=== PATIENT | male | born 1975 | race Caucasian/White ===

== ENCOUNTER 2016-08-02 10:26 | Emergency (ER) | payer OTHER ==
[~2016-08-02] VITALS: Ht 180.3 cm; Wt 136.1 kg
[2016-08-02 11:14] LABS: ABSOLUTE BASOPHIL COUNT 0 /CUMM (0.0-0.2); ABSOLUTE EOSINOPHIL COUNT 0.2 /CUMM (0.0-0.7); ABSOLUTE GRANULOCYTE CT 4.4 /CUMM (1.4-6.5); ABSOLUTE LYMPH COUNT 1.8 /CUMM (1.2-3.4); ABSOLUTE MONOCYTE COUNT 0.5 /CUMM (0.10-0.60); BASOPHIL % 0.5 % (0.0-2.0); EOSINOPHIL % 2.7 % (0-5); GRANULOCYTE % 64.1 % (42.2-75.2); HEMATOCRIT 42.9 % (42-52); MEAN CORPUSCULAR HGB 32.5 PG (27.0-31.0); MEAN CORPUSCULAR HGB CONC 33.7 G/DL (33.0-37.0); MEAN CORPUSCULAR VOLUME 96.7 FL (80.0-94.0); MEAN PLATELET VOLUME 8.1 FL (7.4-10.4); PLATELET COUNT 270 /CUMM (130-400); RBC DISTRIBUTION WIDTH 14.1 % (11.5-14.5); RED BLOOD CELL CT 4.44 /CUMM (4.70-6.10); WHITE BLOOD CELL COUNT 6.9 /CUMM (4.8-10.8)
--- NOTE | 2016-08-02 11:40 | ED DYSPNEA/ASTHMA COMPLAINT ---
See Addendum History of Present Illness General Chief Complaint: Dyspnea (COPD, CHF, Other) Stated Complaint: SOB X 1 MONTH Source: patient, old records Exam Limitations: no limitations Vital Signs & Intake/Output Vital Signs & Intake/Output Vital Signs Date Time Temp Pulse Resp B/P Pulse O2 O2 Flow FiO2 Ox Delivery Rate 08/02 1254 97.4 115 20 166/98 04 1254 97 08/02 1254 97.4 115 20 166/98 97 Room Air 08/02 1141 98.0 90 18 138/103 95 Room Air 08/02 1030 97.1 98 22 160/88 97 Room Air ED Intake and Output 08/03 0000 08/02 1200 Intake Total 60 Output Total Balance 60 Intake, Oral 60 Patient 300 lb Weight Allergies Coded Allergies: Penicillins (UNKNOWN 08/02/16) Reconcile Medications Albuterol Sulfate (Proair Hfa) 90 MCG HFA.AER.AD 2 PUF INH Q4-6 PRN PRN WHEEZING Apixaban (Eliquis) 5 MG TABLET 1 TAB PO BID afib Diltiazem HCl (Cardizem) 30 MG TABLET 1 TAB PO TID AFIB Glucosamine Sulfate 2KCL (Glucosamine) (Unknown Strength) TABLET (Unknown Dose ) PO DAILY SUPPLEMENT (Reported) Methylprednisolone. (Medrol) 4 MG TAB.DS.PK 1 DP PO AD WHEEZING 6 on day 1 then reduce by one tablet daily until gone Multivitamin (Gummi Bear Multivitamin) 1 EACH TAB.CHEW 1 TAB PO DAILY SUPPLEMENT (Reported) Triage Note: PT STATES SOB CONGESTION, WHEEZING ON AND OFF X 3 MONTHS Triage Nurses Notes Reviewed? yes Onset: Gradual Duration: intermittent, X 3 MONTHS Timing: recent history Severity: mild, moderate Activities at Onset: none Prior Episodes/Possible Cause: no prior episodes Associated Symptoms: DENIES HPI: This is a 40-year-old male with no significant past medical history nonsmoker presents to the ER for evaluation complaining of a 3 month history of intermittent shortness of breath wheezing congestion. He states that the symptoms initially began while he was visiting his mother who is in the hospital for pneumonia. He did not seek care himself for the symptoms. He denies cough sputum production fever chills chest pain palpitations dizziness lightheadedness. Patient does not have a primary care physician is not taken anything for his symptoms. He denies any leg swelling recent immobility. There are no modifying factors or associated symptoms symptoms are not worse with exertion (CHELLE GREENE) Past History Travel History Traveled to [place] past 21 day No Medical History Any Pertinent Medical History? none Surgical History Surgical History: none Psychosocial History What is your primary language Guinean Tobacco Use: Never used ETOH Use: occasional use Illicit Drug Use: denies illicit drug use Family History Hx Contributory? No (CHELLE GREENE) Review of Systems Review of Systems Constitutional: Reports: see HPI. All Other Systems: Reviewed and Negative Comments Review of systems: See HPI, All other systems negative. Constitutional, no chills no fever, no malaise HEENT: No visual changes no sore throat no congestion Cardiovascular: No chest pain , no palpitation , no orthopnea no ankle swelling Skin, no jaundice no rashes, no change in skin Respiratory: dyspnea no cough no sputum no hemoptysis GI: No nausea no vomiting, no diarrhea, no bloating/constipation : No dysuria Muscle skeletal: No joint pain, no joint swelling, no back pain, no neck pain, Neurologic: No numbness no headache Psych: No stress Heme/endocrine: No bruising no bleeding Immunology: No lymphadenopathy, (CHELLE GREENE) Physical Exam Physical Exam General Appearance: well developed/nourished, alert, awake Respiratory: normal breath sounds, chest non-tender Comments: Well-developed well-nourished person in no acute distress HEENT: Normal EENT exam; PERRL, EOMI, HEAD is atraumatic. moist mucous membranes. Neck: Supple, normal range of motion Back: Nontender, no CVA tenderness. Full range of motion Cardiovascular: Regular rate and rhythm no murmurs rubs or gallops, normal JVP Respiratory: Chest nontender.There were no bony deformities, no asymmetry. No respiratory distress. Patient speaking in full complete sentences. Breath sounds clear to auscultation bilaterally: NO W/R/R Abdomen: Soft, nontender obese nondistended, no appreciable organomegaly. Normal bowel sounds. No rebound/guarding, No appreciable enlargement of the abdominal aorta, No ascites. Extremity: No edema, full range of motion of extremities Neuro: Alert oriented x3, motor sensory normal, There were no obvious focal neurologic abnormalities. Skin: No appreciable rash on exposed skin, skin is warm and dry. Psych: Mood and affect is normal, memory and judgment is normal. Core Measures ACS in differential dx? Yes Severe Sepsis Present: No Septic Shock Present: No (GALO UMANZOR,CHELLE) Progress Differential Diagnosis: AMI, bronchitis, costochondritis, CHF, COPD, musculoskeletal pain, pericarditis, pulmonary embolism, pneumonia, pneumothorax, unstable angina, a. FIB Plan of Care: Orders Procedure Date/time Status Add-on Test (ER Only) 08/02 1236 Active EKG 08/02 1049 Active THYROID STIMULATING HORMONE 08/02 1047 Complete MAGNESIUM 08/02 1047 Complete TROPONIN LEVEL 08/02 1034 Complete COMPREHENSIVE METABOLIC PANEL 08/02 1034 Complete CBC WITHOUT DIFFERENTIAL 08/02 1034 Complete Laboratory Tests 08/02/16 1047: Anion Gap 12, Estimated GFR > 60, BUN/Creatinine Ratio 15.7, Glucose 139 H, Calcium 9.7, Magnesium 1.5 L, Total Bilirubin 0.9, AST 138 H, ALT 158 H, Alkaline Phosphatase 79, Troponin I 0.02, Total Protein 7.4, Albumin 4.0, Globulin 3.4, Albumin/Globulin Ratio 1.2, TSH 2.430, CBC w Diff NO MAN DIFF REQ, RBC 4.44 L, MCV 96.7 H, MCH 32.5 H, RDW 14.1, MPV 8.1, Gran % 64.1, Lymphocytes % 25.6, Monocytes % 7.1, Eosinophils % 2.7, Basophils % 0.5, Absolute Granulocytes 4.4, Absolute Lymphocytes 1.8, Absolute Monocytes 0.5, Absolute Eosinophils 0.2, Absolute Basophils 0, PUBS MCHC 33.7 Labs ordered old records reviewed I discussed the patient is EKG new onset A. fib, after discussing the patient with his EKG he is stating that there is "no way" that he is being admitted stating that he has animals and people he needs to care for. Discussed with him the harms of this we will continue to monitor waiting for blood work call was placed to cardiology On repeat evaluation discussed with patient all his lab results x-ray findings patient does not have an elevated white count is a symptoms of been present for the past 3 months I do not believe he requires an antibiotic however again stressed with the patient at least need for admission for anticoagulation and rate control her etiology consult given he does not have a primary care physician again the patient is refusing, CASE d/w dr morgan who agrees with plan Case discussed with Dr. Shen advised to start the patient on diltiazem 30 mg 3 times a day petra montesinos have him call his office today given the patient is refusing admission we also sent home with pro-air inhaler prednisone, I again attempted to reason with the patient for admission which she is refusing he is ambulatory here with steady gait he denies chest pain there is no pain with inspiration no leg swelling no hemoptysis I considered pulmonary embolism in my differential however the patient is a not exhibiting any of these symptoms at this time CHADS SCORE 0 points Low risk of thromboembolic event. 1.9% risk of event per year if no coumadin. (CHELLE GREENE) Diagnostic Imaging: Viewed by Me: Radiology Read. Discussed w/RAD: Radiology Read. Radiology Impression: PATIENT: HARSHAD MUNOZ PRESENT AGE: 40 PATIENT ACCOUNT NO: [id number] : 74 LOCATION: [facility] ORDERING PHYSICIAN: CHELLE UMANZOR SERVICE DATE: 08/02/16 EXAM TYPE: RAD - XRY-CHEST XRAY, PA AND LATERAL EXAMINATION: XR CHEST CLINICAL INFORMATION: Shortness of breath. COMPARISON: None TECHNIQUE: 2 views of the chest were obtained. FINDINGS: There is diffuse interstitial prominence which is nonspecific and could represent mild interstitial edema or airways inflammation/ atypical pneumonia. There is no focal consolidation. No pleural effusion. The heart size is normal. IMPRESSION: Diffuse interstitial prominence may represent airways inflammation/atypical pneumonia or possibly interstitial edema. No focal consolidation. DICTATED BY: KELLY RODRÍGUEZ MD DATE/TIME DICTATED:08/02/161104 TILE LAYER:JENIFFER DATE/TIME TRANSCRIBED:08/02/161104 CONFIDENTIAL, DO NOT COPY WITHOUT APPROPRIATE AUTHORIZATION. <Electronically signed in Other Vendor System> SIGNED BY: KELLY RODRÍGUEZ MD 08/02/16 1153 Initial ED EKG: a. FIB AT 110, NONSPECIFIC st SEGMENT CHANGES NORMAL AXIS Rhythm Strip: atrial fibrillation (CHELLE GREENE) Departure Departure Time of Disposition: 124 Disposition: HOME OR SELF CARE Condition: Stable Clinical Impression Primary Impression: New onset a-fib Referrals: OSMIN FALL,SURESH Miller (PCP/Family) MIGNON FALL,RYAN Cramer Additional Instructions: Follow-up with travel journalist Dr. Shen's office today. Prednisone as directed, Diltiazem, and elliquis and discussed. proair inhaler as needed. As discussed it was highly recommended to you the need for admission and the risks of leaving prematurely at this time given your diagnosis of new onset atrial fibrillation. Your risk of developing blood clots, further arrhythmias worsening of your symptoms or even possibly and this has been explained to you. It is imperative that you follow up with his travel journalist this week as well as take all the medications as prescribed. your prescriptions were sent to your pharmacy. Return anytime sooner if your symptoms persist, worsen or have any other concerns Departure Forms: Customer Survey General Discharge Information Prescriptions: Current Visit Scripts Apixaban (Eliquis) 1 TAB PO BID #60 TAB Diltiazem HCl (Cardizem) 1 TAB PO TID #90 TAB Albuterol Sulfate (Proair Hfa) 2 PUF INH Q4-6 PRN PRN WHEEZING #1 INHAL Methylprednisolone. (Medrol) 1 DP PO AD #1 DP 6 on day 1 then reduce by one tablet daily until gone (CHELLE GREENE) PA/ROUGE SIFTER Co-Sign Statement Statement: ED Attending supervision documentation- x I saw and evaluated the patient. I have also reviewed all the pertinent lab results and diagnostic results. I agree with the findings and the plan of care as documented in the PA's/ROUGE SIFTER's documentation. [] I have reviewed the ED Record and agree with the PA's/ROUGE SIFTER's documentation. [] Additions or exceptions (if any) to the PAs/ROUGE SIFTER's note and plan are summarized below: [] (FUENTES FALL,JAVIER) Critical Care Note Critical Care Note Critical Care Time: non-applicable (CHELLE GREENE)
[2016-08-02] MEDS ORDERED: GUMMI BEAR MUL1 EACH PO (11:45)
[2016-08-02] MEDS ORDERED: GLUCOSAMINE &1 EAC1 PO (11:46)
[2016-08-02] MEDS ORDERED: GLUCOSAMINE1000 MG PO (11:46)
--- NOTE | 2016-08-02 11:53 | RADIOLOGY REPORT ---
EXAMINATION: XR CHEST CLINICAL INFORMATION: Shortness of breath. COMPARISON: None TECHNIQUE: 2 views of the chest were obtained. FINDINGS: There is diffuse interstitial prominence which is nonspecific and could represent mild interstitial edema or airways inflammation/atypical pneumonia. There is no focal consolidation. No pleural effusion. The heart size is normal. IMPRESSION: Diffuse interstitial prominence may represent airways inflammation/atypical pneumonia or possibly interstitial edema. No focal consolidation.
[2016-08-02] MEDS ORDERED: CARDIZEM30 M1 PO (12:45)
[2016-08-02] MEDS ORDERED: PROAIR HFA8.5 GM INH (12:45)
[2016-08-02] MEDS ORDERED: ELIQUIS5 M1 PO (12:45)
[2016-08-02] MEDS ORDERED: MEDROL4 M2 PO (12:45)
[2016-08-02 12:54] VITALS: BP 166/98
== END 2016-08-02 12:57 | disposition left against medical advice (07) ==
LOC: ERH 10:26
PROVIDERS: Emergency Medicine
DX: I48.91 Unspecified atrial fibrillation (principal); R06.2 Wheezing
CPT/HCPCS: 1263; 93005; 93010

== ENCOUNTER 2016-08-03 14:28 | Inpatient (IN) | payer OTHER ==
[~2016-08-03] VITALS: Ht 180.3 cm; Wt 136.1 kg
[~2016-08-03 14:28] MED LIST: CARDIZEM30 M1 PO; ELIQUIS5 M1 PO; GLUCOSAMINE &1 EAC1 PO; GLUCOSAMINE1000 MG PO; GUMMI BEAR MUL1 EACH PO; MEDROL4 M2 PO; PROAIR HFA8.5 GM INH
--- NOTE | 2016-08-03 14:30 | NUR ---
TO EKG ALCTANNER
--- NOTE | 2016-08-03 14:39 | NUR ---
PT TO ED C/O SOB TODAY. PT WAS SEEN IN ED YESTERDAY, DIAGNOSED WITH NEW ONSET AFIB, PT SIGNED OUT AMA, STATES HE WAS UNABLE TO STAY DUE TO "THINGS TO DO". STATES HE FELT OK WHEN HE LEFT, BUT THIS AM STARTED FEELING SOB AGAIN. EKG DONE. BP 154/100, RA SATS 97%, DENIES ANY PAIN.
--- NOTE | 2016-08-03 15:13 | NUR ---
BLOODWORK,SST,LAV,BLUE,MURCIA AND PINK TOP TUBE SENT TO LAB.
[2016-08-03 15:21] LABS: ABSOLUTE BASOPHIL COUNT 0 /CUMM (0.0-0.2); ABSOLUTE EOSINOPHIL COUNT 0 /CUMM (0.0-0.7); ABSOLUTE GRANULOCYTE CT 11.9 /CUMM (1.4-6.5); ABSOLUTE LYMPH COUNT 1.1 /CUMM (1.2-3.4); ABSOLUTE MONOCYTE COUNT 0.7 /CUMM (0.10-0.60); BASOPHIL % 0.3 % (0.0-2.0); EOSINOPHIL % 0.1 % (0-5); GRANULOCYTE % 86.5 % (42.2-75.2); HEMATOCRIT 42.2 % (42-52); MEAN CORPUSCULAR HGB 32.4 PG (27.0-31.0); MEAN CORPUSCULAR HGB CONC 33.5 G/DL (33.0-37.0); MEAN CORPUSCULAR VOLUME 96.6 FL (80.0-94.0); MEAN PLATELET VOLUME 8.1 FL (7.4-10.4); PLATELET COUNT 294 /CUMM (130-400); RBC DISTRIBUTION WIDTH 13.8 % (11.5-14.5); RED BLOOD CELL CT 4.36 /CUMM (4.70-6.10)
[2016-08-03 15:22] LABS: WHITE BLOOD CELL COUNT 13.8 /CUMM (4.8-10.8)
--- NOTE | 2016-08-03 15:30 | NUR ---
PER LAB BLUE,SST,MURCIA TUBES HEMOLIZED
--- NOTE | 2016-08-03 15:30 | ED DYSPNEA/ASTHMA COMPLAINT ---
History of Present Illness General Chief Complaint: Dyspnea (COPD, CHF, Other) Stated Complaint: SOB Source: patient, old records Exam Limitations: no limitations Vital Signs & Intake/Output Vital Signs & Intake/Output Vital Signs Date Time Temp Pulse Resp B/P Pulse O2 O2 Flow FiO2 Ox Delivery Rate 08/03 1511 97 Nasal 2.0L Cannula 08/03 1439 99.4 134 20 154/100 97 Room Air Allergies Coded Allergies: Penicillins (UNKNOWN 08/02/16) Reconcile Medications Albuterol Sulfate (Proair Hfa) 90 MCG HFA.AER.AD 2 PUF INH Q4-6 PRN PRN WHEEZING Apixaban (Eliquis) 5 MG TABLET 1 TAB PO BID afib Diltiazem HCl (Cardizem) 30 MG TABLET 1 TAB PO TID AFIB Glucosamine Sulfate 2KCL (Glucosamine) (Unknown Strength) TABLET (Unknown Dose ) PO DAILY SUPPLEMENT (Reported) Methylprednisolone. (Medrol) 4 MG TAB.DS.PK 1 DP PO AD WHEEZING 6 on day 1 then reduce by one tablet daily until gone Multivitamin (Gummi Bear Multivitamin) 1 EACH TAB.CHEW 1 TAB PO DAILY SUPPLEMENT (Reported) Triage Note: PT TO ED C/O SOB TODAY. PT WAS SEEN IN ED YESTERDAY, DIAGNOSED WITH NEW ONSET AFIB, PT SIGNED OUT AMA, STATES HE WAS UNABLE TO STAY DUE TO "THINGS TO DO". STATES HE FELT OK WHEN HE LEFT, BUT THIS AM STARTED FEELING SOB AGAIN. EKG DONE. BP 154/100, RA SATS 97%, DENIES ANY PAIN. Triage Nurses Notes Reviewed? yes Onset: months Duration: week(s):, continues in ED, getting worse, intermittent Timing: recent history Severity: moderate Activities at Onset: activity Prior Episodes/Possible Cause: frequent episodes Modifying Factors: Improves With: rest. Worsens With: movement. Associated Symptoms: edema, lightheadedness, weakness HPI: 3 months prior to admission patient complains of episodes of fatigue shortness of breath chest heaviness worse with exertion. He also notes increasing swelling in his legs. He was seen yesterday diagnosed with rapid atrial fibrillation signed out AMA with prescriptions for diltiazem and eliquis. He denies fever chills nausea vomiting diarrhea abdominal pain dysuria rash bleeding headache. Past History Travel History Traveled to [place] past 21 day No Medical History Any Pertinent Medical History? see below for history Cardiovascular: AFIB Surgical History Surgical History: none Psychosocial History What is your primary language Pashto Tobacco Use: Never used ETOH Use: occasional use Illicit Drug Use: denies illicit drug use Family History Hx Contributory? No Review of Systems Review of Systems Constitutional: Reports: see HPI, weakness. EENTM: Reports: no symptoms. Respiratory: Reports: see HPI, short of breath. Cardiovascular: Reports: see HPI, peripheral edema. GI: Reports: no symptoms. Genitourinary: Reports: no symptoms. Musculoskeletal: Reports: no symptoms. Skin: Reports: no symptoms. Neurological/Psychological: Reports: no symptoms. Hematologic/Endocrine: Reports: no symptoms. Immunologic/Allergic: Reports: no symptoms. All Other Systems: Reviewed and Negative Physical Exam Physical Exam General Appearance: well developed/nourished, alert, awake, anxious, moderate distress, obese Head: atraumatic, normal appearance Eyes: Bilateral: normal appearance, PERRL, EOMI. Ears, Nose, Throat: normal pharynx, normal ENT inspection Neck: normal inspection, supple, full range of motion, no midline tenderness Respiratory: chest non-tender, no respiratory distress, quiet respiration, crackles Cardiovascular: normal peripheral pulses, irregularly irregular, norml femoral pulses equa Peripheral Pulses: 4+ carotid (R), 4+ carotid (L) Gastrointestinal: normal bowel sounds, soft, non-tender, no organomegaly Extremities: normal capillary refill, pedal edema Neurologic/Psych: no motor/sensory deficits, awake, alert, oriented x 3, normal gait, abnormal cerebellar tests, scarf gluer II-XII nml as tested Skin: intact, normal color, warm/dry Lymphatic: no anterior cervical griselda Core Measures ACS in differential dx? No Severe Sepsis Present: No Septic Shock Present: No Progress Differential Diagnosis: AMI, CHF, pneumonia Plan of Care: Orders Procedure Date/time Status Regular Diet 08/03 D Active Patient Data 08/03 1519 Active OXYGEN SETUP (GEN) 08/03 151 Active Saline Lock 08/03 1515 Active Admit to inpatient 08/03 1515 Active Add-on Test (ER Only) 08/03 1515 Active Vital Signs 08/03 1515 Active Activity/Ambulation 08/03 1515 Active Code Status 08/03 1515 Active PROTHROMBIN TIME 08/03 1510 Complete B-TYPE NATRIURETIC PEP (BNP) 08/03 1510 Complete TROPONIN LEVEL 08/03 1459 Complete MAGNESIUM 08/03 1459 Complete COMPREHENSIVE METABOLIC PANEL 08/03 1459 Complete CBC WITHOUT DIFFERENTIAL 08/03 145 Active EKG 08/03 1431 Active Laboratory Tests 08/03/16 1540: Anion Gap 11, Estimated GFR > 60, BUN/Creatinine Ratio 16.3, Glucose 119 H, Calcium 10.3 H, Magnesium 1.6, Total Bilirubin 0.6, AST 95 H, ALT 140 H, Alkaline Phosphatase 75, Troponin I 0.01, Hld-J-Kmknsxoucky Pept 1730 H, Total Protein 7.7, Albumin 4.1, Globulin 3.6, Albumin/Globulin Ratio 1.1 08/03/16 1510: PT 13.3 H, INR 1.27 H, CBC w Diff MAN DIFF ORDERED, RBC 4.36 L, MCV 96.6 H, MCH 32.4 H, RDW 13.8, MPV 8.1, Gran % 86.5 H, Lymphocytes % 7.8 L, Monocytes % 5.3, Eosinophils % 0.1, Basophils % 0.3, Absolute Granulocytes 11.9 H, Segmented Neutrophils Pending, Absolute Lymphocytes 1.1 L, Absolute Monocytes 0.7 H, Absolute Eosinophils 0, Absolute Basophils 0, PUBS MCHC 33.5 Diagnostic Imaging: Viewed by Me: Radiology Read. Discussed w/RAD: Radiology Read. CXR Impression: cm, vascular congestion Initial ED EKG: normal axis, AFIB, nonspecific ST T wave chg Prior EKG: unchanged Rhythm Strip: atrial fibrillation Departure Departure Time of Disposition: 1527 Disposition: STILL A PATIENT Condition: Stable Clinical Impression Primary Impression: Atrial fibrillation with rapid ventricular response Secondary Impressions: Congestive heart failure Qualifiers: Congestive heart failure type: unspecified congestive heart failure type Congestive heart failure chronicity: acute Qualified Code: I50.9 - Heart failure, unspecified Departure Forms: Customer Survey General Discharge Information Admission Note Spoke With: RYAN CROW MD Documentation of Exam: Documentation of any treatments & extenuating circumstances including Concerns Regarding Discharge (functional status, medication knowledge or non-compliance, living conditions, etc.) that warrant an admission rather than observation: Cardiac monitoring serial lab exam medication adjustment cardiology evaluation IV heparin continuing care discharge planning Critical Care Note Critical Care Note Critical Care Time: 30-74 min (40) Departure Forms: Customer Survey General Discharge Information Admission Note Spoke With: RYAN CROW MD Documentation of Exam: Documentation of any treatments & extenuating circumstances including Concerns Regarding Discharge (functional status, medication knowledge or non-compliance, living conditions, etc.) that warrant an admission rather than observation: Cardiac monitoring serial lab exam medication adjustment cardiology evaluation IV heparin continuing care discharge planning Critical Care Note Critical Care Note Critical Care Time: 30-74 min (40)
[2016-08-03 15:39] LABS: PT 13.3 SEC (9.4-12.5)
--- NOTE | 2016-08-03 15:50 | RADIOLOGY REPORT ---
EXAMINATION: XR PORTABLE CHEST CLINICAL INFORMATION: Rapid A. fib shortness of breath COMPARISON: None TECHNIQUE: Portable AP view of the chest was obtained. FINDINGS: The cardiac silhouette is mildly enlarged but unchanged. Lungs clear. Pulmonary vascularity normal. Bone and soft tissues unremarkable IMPRESSION: enlarged cardiac silhouette but unchanged
--- NOTE | 2016-08-03 16:05 | NUR ---
ADDITIONAL IV ACCESS ESTABLISHED, #22 RFA
--- NOTE | 2016-08-03 16:15 | NUR ---
PT MEDICATED WITH IV HEPARIN BOLUS 4000 UNITS AND HEPARIN GTT INITIATED AT 20 MLS/HR (1000 UNITS/HR) PER ORDERS. PT MAXED OUT ON HEPARIN GTT AND GTT WAS VERIFIED WITH KULDEEP BISHOP.
--- NOTE | 2016-08-03 16:25 | NUR ---
PT MEDICATED WITH CARDIZEM AND IV LASIX PER ORDERS. HR 100-120 PRIOR TO RECEIVING SAME. HOUSESTAFF (MD WOODY) AT BEDSIDE.
--- NOTE | 2016-08-03 16:30 | NUR ---
HOUSE STAFF AT BEDSIDE
--- NOTE | 2016-08-03 16:55 | NUR ---
PT MEDICATED WITH MAG-OX PER ORDERS.
--- NOTE | 2016-08-03 16:57 | History & Physical ---
JOSE LUIS SAENZ 08/03/16 8512: General Information and HPI MD Statement: I have seen and personally examined MARCELLO OG and documented this H&P. The patient is a 40 year old M who presented with a patient stated chief complaint of [persistent/progressive exertional shortness of breath]. Source of Information: patient Exam Limitations: no limitations History of Present Illness: Mr Og is a 40-year-old gentleman with a PMH of morbid obesity, right knee injury who presents with complaints of progressive shortness of breath with exertion. Over the past 3 months he has been taking care of his sick mother at her rehab facility and noticed that during the last 1 month he has been experiencing intermittent episodes of chest congestion and productive cough occasionally with green/yellow sputum that was not relieved with PRN Mucinex. For the past few days he reports worsening exertional shortness of breath, a decrease in the ability to exert himself at work and a productive cough over the past 2 days. He followed up in the ER the day prior to admission and was found to have new onset atrial fibrillation. He received an albuterol nebulizer treatment which provided significant relief but declined to be admitted due to his work obligations and left AMA. Prior to leaving he was provided with prescriptions for Eliquis, Cardizem, proair and a Medrol Dosepak. Unfortunately he did not start any of these medications due to concern for bleeding, went to work this morning where he again experienced significant dyspnea with mild exertion, feeling that he described as "winded easily". ROS: Patient does endorse one month duration of nocturnal cough with clear productive sputum, weight gain over the past few months. He denies any headaches, dizziness or blurred vision or chest pain, palpitations, nausea, abdominal pain, fevers or chills. 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 Allergies/Medications Allergies: Coded Allergies: Penicillins (UNKNOWN 08/02/16) Home Med list Albuterol Sulfate (Proair Hfa) 90 MCG HFA.AER.AD 2 PUF INH Q4-6 PRN PRN WHEEZING Apixaban (Eliquis) 5 MG TABLET 1 TAB PO BID afib Diltiazem HCl (Cardizem) 30 MG TABLET 1 TAB PO TID AFIB Glucosamine Sulfate 2KCL (Glucosamine) (Unknown Strength) TABLET (Unknown Dose ) PO DAILY SUPPLEMENT (Reported) Methylprednisolone. (Medrol) 4 MG TAB.DS.PK 1 DP PO AD WHEEZING 6 on day 1 then reduce by one tablet daily until gone Multivitamin (Gummi Bear Multivitamin) 1 EACH TAB.CHEW 1 TAB PO DAILY SUPPLEMENT (Reported) Past History Travel History Traveled to [place] past 21 day No Medical History Cardiovascular: AFIB Musculoskeletal: right knee injury Endocrine: obesity Surgical History Surgical History: none Past Family/Social History Psychosocial History Where do you live? Home Who Do You Live With? self Services at Home: None Smoking Status: Never Smoked ETOH Use: daily use Illicit Drug Use: denies illicit drug use Functional Ability ADLs Independent: dressing, eating, toileting, bathing. Ambulation: independent IADLs Independent: shopping, housework, finances, food prep, telephone, transportation , medication admin. Employment History Employment Employed Review of Systems Review of Systems Constitutional: Reports: see HPI. EENTM: Reports: no symptoms. Cardiovascular: Reports: see HPI. Respiratory: Reports: see HPI. GI: Reports: no symptoms. Genitourinary: Reports: no symptoms. Musculoskeletal: Reports: no symptoms. Skin: Reports: no symptoms. Exam & Diagnostic Data Last 24 Hrs of Vital Signs/I&O Vital Signs Date Time Temp Pulse Resp B/P Pulse O2 O2 Flow FiO2 Ox Delivery Rate 08/03 1818 98.8 103 20 138/80 96 Room Air 08/03 1632 98.6 106 18 143/71 95 Room Air 08/03 1511 97 Nasal 2.0L Cannula 08/03 1439 99.4 134 20 154/100 97 Room Air Intake & Output 08/03 1600 08/03 0800 08/03 0000 Intake Total Output Total Balance Patient 300 lb Weight Physical Exam General Appearance Alert, Cooperative, Slightly anxious appearing Skin No Breakdown HEENT EOMI, Mucous Membr. moist/pink Neck Unable to assess JVD due to body habitus Cardiovascular Normal S1, Normal S2, irregular regular rhythm Lungs Normal Air Movement, diminished breath sounds in the basilar regions. Distant breath sounds bilaterally Abdomen Normal Bowel Sounds, Soft, No Tenderness Extremities Normal Pulses, 2+ pitting edema bilateral lower extremities Vascular Pulses Symmetrical Last 24 Hrs of Labs/Cristopher: Laboratory Tests 08/03/16 1853: Urine Color STRAW, Urine Clarity CLEAR, Urine pH 6.0, Ur Specific [place] 1.010, Urine Protein NEG, Urine Ketones NEG, Urine Nitrite NEG, Urine Bilirubin NEG, Urine Urobilinogen 0.2, Ur Leukocyte Esterase NEG, Ur Microscopic EXAM NOT REQUIRED, Urine Hemoglobin NEG, Urine Glucose NEG 08/03/16 1540: Anion Gap 11, Estimated GFR > 60, BUN/Creatinine Ratio 16.3, Glucose 119 H, Calcium 10.3 H, Magnesium 1.6, Total Bilirubin 0.6, AST 95 H, ALT 140 H, Alkaline Phosphatase 75, Troponin I 0.01, Jdx-M-Fotuzdurygb Pept 1730 H, Total Protein 7.7, Albumin 4.1, Globulin 3.6, Albumin/Globulin Ratio 1.1, TSH 1.710, Free T4 1.00, Lyme Disease Antibody Pending 08/03/16 1510: PT 13.3 H, INR 1.27 H, CBC w Diff MAN DIFF ORDERED, RBC 4.36 L, MCV 96.6 H, MCH 32.4 H, RDW 13.8, MPV 8.1, Gran % 86.5 H, Lymphocytes % 7.8 L, Monocytes % 5.3, Eosinophils % 0.1, Basophils % 0.3, Absolute Granulocytes 11.9 H, Segmented Neutrophils 85 H, Absolute Lymphocytes 1.1 L, Lymphocytes 14 L, Monocytes 1 L, Absolute Monocytes 0.7 H, Absolute Eosinophils 0, Absolute Basophils 0, Platelet Estimate ADEQUATE, Normochromic RBCs VERIFIED, Poikilocytosis 1+, Stomatocytes 1+, PUBS MCHC 33.5 Microbiology 08/03 1730 URINE ROUT: Legionella Antigen - COLB 08/03 1730 URINE ROUT: Streptococcus pneumoniae Antigen (M - COLB 08/03 1730 URINE ROUT: Urine Culture - COLB Diagnostic Data EKG Results HR fibrillation, V rate 87 through 188. HR 130. Probable inferior infarct, age indeterminate. Borderline prolonged QT interval. QTC 483 CXR Results enlarged cardiac silhouette but unchanged Assessment/Plan Assessment: 40-year-old gentleman with a PMH of morbid obesity, right knee injury who presents with complaints of progressive shortness of breath with exertion over the past 1 month, seen in the ED the day prior to admission, was diagnosed with new onset atrial fibrillation, left AMA, experienced recurrence of significant dyspnea with mild exertion. Prior to leaving the hospital yesterday, the patient was provided with a prescription for Eliquis, Cardizem, Proair and a Medrol Dosepak which he had not started taking. VS on admission: BP 154 100, HR 134, RR 20, SPO2 97% on RA, T 99.4 Pertinent labs: WBC 13.8, H&H 14.1/42.2, platelet count 294K, INR 1.27, sodium 137, potassium 4.6, chloride 97, bicarbonate 29, BUN/Cr 13/0.8, glucose 119 Calcium: 10.3, albumin 4.1 ProBNP: 1713 AST/ALT: 95/140 Magnesium: 1.6 TFTs: TSH 1.710, free T4 1 0.00 UA: Unremarkable Utox: pending CXR: Enlarged cardiac silhouette but unchanged Problem list: 1. A. fib with RVR 2. Rule out ACS 3. Hypomagnesemia 4. Transaminitis 5. SIRS criteria 6. Morbid obesity 7. Nocturnal snoring 8. Regular alcohol use Plan: * A. fib with RVR: Patient started on heparin drip per protocol. Stool guaiac negative. We'll initiate Cardizem drip with target HR less than 110 bpm * Rule out ACS: EKG/troponin at 2200, 0600 hrs. * Lipid panel in the a.m. and depending on ASCVD score patient may benefit from statin therapy * Echocardiogram in the a.m. to assess EF and valvular function * Lyme titer pending. SIRS criteria likely secondary to stress response in the setting of new onset A. fib. No evidence of infectious source at this time. Follow-up urine strep and Legionella antigens * Urine drug tox pending * Hypomagnesemia: Supplementing for target above 2.0 * Monitor for signs of EtOH withdrawal. Initiate CIWA protocol if warranted * Transaminitis: This may be transient in the setting of venous congestion due to A. fib and RVR. Repeat LFTs in the a.m. If persistent transaminitis, consider abdominal ultrasound to assess for hepatic steatosis, hepatitis panel. Alcohol abstinence at discharge * Heart healthy diet. Nutrition consult in the a.m. for healthy dietary options after discharge * TRCs * Patient reports a history of snoring at night. In conjunction with his obesity and new onset atrial fibrillation there may be a likely underlying sleep apnea. Will likely benefit from outpatient sleep study once discharged to rule out/in ROSALIA * DVT prophylaxis: Heparin drip * CODE STATUS: Full code Follow-up: * Echocardiogram in the a.m. * Troponin/EK/0600 * LFTs in the a.m. * Monitor for EtOH withdrawal symptoms. Start CIWA if warranted * Pulmonology consult for outpatient sleep study * Please provide patient with new PCP referral prior to discharge As Ranked By This Provider Problem List: 1. Atrial fibrillation with rapid ventricular response 2. New onset a-fib 3. Hypomagnesemia 4. Transaminitis 5. SIRS (systemic inflammatory response syndrome) 6. Morbid obesity 7. History of snoring 8. Alcohol use Core Measures/Miscellaneous Acute Coronary Syndrome ACS Diagnosis: No Cerebrovascular Accident CVA/TIA Diagnosis: No Congestive Heart Failure CHF Diagnosis: No Venous Thromboembolism VTE Risk Factors: Age > 40 No [facility] VTE prophylaxis d/t: No contraindications No VTE Pharm Prophylaxis d/t: No contraindications VTE Diagnosis: No VTE Type: NONE VTE Confirmed by (Test): NONE Severe Sepsis Severe Sepsis Present: No Septic Shock Septic Shock Present: No Miscellaneous Documentation Attending Case Discussed With: RYAN CROW MD Primary Care Physician: SURESH SOLORIO MD Patient sees these Specialists None Level of Patient Care: Telemetry Resident Review Statement Resident Statement: examined this patient, discussed with mba intern, agreed with mba intern, discussed with family, reviewed EMR data (avail), discussed with nursing , reviewed images RYAN CROW MD 08/03/16 1850: Attending MD Review Statement Attending Statement Attending MD Statement: examined this patient, discuss w/resident/PA/GAMEMASTER, agreed w/resident/PA/GAMEMASTER, discussed with family, reviewed EMR data (avail), discussed with nursing, discussed with case mgmt, reviewed images, amended to note Attending Assessment/Plan: History of present illness: Mr. Marcello Og is a 40-year-old male with a history of morbid obesity, exertion over the past month who presented to the ED on 08/02/2016 c /o feelings of being increasingly "run down" over the past 3 months and progressive shortness of breath on exertion over the past month that got significantly worse over the past week with some associated cough productive of yellowish sputum. In the ED he was found to be in "new onset" atrial fibrillation with a rapid ventricular response. He refused recommendations for admission and left AMA after being given prescriptions for anticoagulation with Eliquis (apixaban) 5 mg twice daily and Cardizem (diltiazem) 30 mg 3 times daily. 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 He had not taken any of the prescribed medications and was again found to be in atrial fibrillation with a rapid ventricular response. Physical examination: Morbidly obese middle-aged male in no acute distress. Vital signs: See above. HEENT: Normocephalic, atraumatic, EOMI, moist membranes. Neck: No JVD, no bruits. Lungs: Clear to auscultation. Heart: S1, S2 with no murmur, gallop, or rub appreciated. PMI not well felt Abdomen: Soft, nontender, positive bowel sounds. Extremities: No edema. Studies: ECG (08/03/2016): Atrial fibrillation with a rapid ventricular response, consider old inferior wall myocardial infarction, consider left ventricular hypertrophy, and borderline prolonged QT interval. CXR (08/02/2016): Enlarged cardiac silhouette but unchanged Impression/recommendations: "New onset" atrial fibrillation with progressive dyspnea on exertion in this middle-aged male with morbid obesity. * Admit to telemetry, follow-up electrocardiograms, follow-up troponins. * IV heparin for the short-term, if no contraindication, while we determine his [id number] Score. * IV diltiazem for ventricular response rate control. * Obtain echocardiogram to assess overall left ventricular function, to determine if LVH is present, assess atrial size, assess right ventricular size and function, estimated PA systolic pressure, exclude occult valvular disease, etc. * Keep pulmonary embolism in the differential diagnosis for "new onset" atrial fibrillation, although this appears to be low in the differential diagnosis. * Check glycosylated hemoglobin A1c, free T4, and TSH. * Replete magnesium and maintain at or above 2.0 mEq per liter. * Gently diurese given shortness of breath on exertion, elevated NT-PRO BNP, and yesterday's CXR findings. * Follow up potassium and magnesium closely with diuresis. * Follow-up LFTs following diuresis to see if they were elevated on the basis of hepatic congestion and consider abdominal ultrasound if they do not improve. * DVT prophylaxis being addressed for the short term by the IV heparin. Further recommendations will follow.
--- NOTE | 2016-08-03 17:05 | NUR ---
Emergency Dept UC Admit Note: To be admitted to [facility] by DR CROW with NEW ONSET AFIB as the diagnosis, to TELEMETRY location. ROOM ASSIGNMENT 179-1.
--- NOTE | 2016-08-03 17:14 | NUR ---
REPORT TO KULDEEP HAMILTON
[2016-08-03 18:18] VITALS: BP 138/80
--- NOTE | 2016-08-03 19:48 | NUR ---
PATIENT ARRIVED TO FLOOR FROM ER VIA STRETCHER. ADMITTING DX AFIB WITH RVR. ALERT AND ORIENTATED X3. AFIB ON MONITOR. HEPARIN DRIP RUNNING AT 20ML/HR. NO ACTIVE BLEEDING NOTED. PATIENT DENIES CP. NO SOB. ORIENTATED TO ROOM AND CALL LIGHT. WILL FOLLOW PLAN OF CARE.
[2016-08-03 22:42] LABS: PTT 36 SEC (25-37)
[2016-08-04 00:08] VITALS: BP 126/82
--- NOTE | 2016-08-04 07:31 | PN- Housestaff ---
Subjective Follow-up For: Atrial Fibrillation with RVR Tele-Events Since Last Visit: Atrial Fibrillation 89-114 bpm Subjective: I saw and examined the patient today morning He is doing much better, Shortness of breath improved, slight cough still present. Denies any chest pain, dizziness, lightheadedness. Review of Systems Constitutional: Reports: see HPI. Respiratory: Reports: cough. Comments: ROS negative except the above. Objective Last 24 Hrs of Vital Signs/I&O Vital Signs Date Time Temp Pulse Resp B/P Pulse O2 O2 Flow FiO2 Ox Delivery Rate 08/04 0008 98.1 74 20 126/82 95 08/04 0000 97 Room Air 08/03 2038 Room Air Room Air 08/03 1818 98.8 103 20 138/80 96 Room Air 08/03 1632 98.6 106 18 143/71 95 Room Air 08/03 1511 97 Nasal 2.0L Cannula 08/03 143 99.4 134 20 154/100 97 Room Air Intake & Output 08/04 0800 08/04 0000 08/03 1600 Intake Total 720 380 Output Total 1650 1825 Balance -930 -1445 Intake, IV 20 Intake, Oral 720 360 Output, Urine 1650 1825 Patient 136.078 kg 136.078 kg Weight Physical Exam General Appearance: Alert, Oriented X3, Cooperative Skin: No Rashes, No Breakdown HEENT: PERRLA Neck: Supple Cardiovascular: Normal S1, Normal S2 Lungs: Clear to Auscultation, Normal Air Movement Abdomen: Normal Bowel Sounds, Soft, No Tenderness Neurological: Normal Speech, Sensation Intact Extremities: No Clubbing, No Cyanosis Vascular: Normal Pulses, Pulses Symmetrical Current Medications: Current Medications Sig/Sergio Start time Last Medication Dose Route Stop Time Status Admin Acetaminophen 650 MG Q6P PRN 08/03 1730 AC PO Albuterol Sulfate 3 ML DAILY NEEDED PRN 08/03 2145 AC INH Diltiazem HCl 125 MG Q24H 08/03 2130 AC 08/03 Sodium Chloride 100 ML IV 2151 Diltiazem HCl 0 .STK-MED ONE 08/03 1622 DC .ROUTE Diltiazem HCl 15 MG ONCE ONE 08/03 1515 DC / IV 08/03 1516 1624 Furosemide 0 .STK-MED ONE 08/03 1551 DC IV Furosemide 20 MG ONCE ONE 08/03 1515 DC 04/ IV 08/03 1516 1618 Heparin Sodium 8,160 UNIT ONCE ONE 08/04 0150 DC / (Porcine) IV 08/04 0151 0229 Heparin Sodium 0 .STK-MED ONE 08/03 1551 DC (Porcine) .ROUTE Heparin Sodium 4,000 UNIT ONCE ONE 08/03 1515 DC 08/03 (Porcine) IV / 1516 1618 Heparin Sodium 25,000 UNIT Q24H 08/03 1515 AC / (Porcine) IV 1614 Sodium Chloride 500 ML Magnesium Oxide 400 MG ONE ONE 08/03 1745 DC 04/ PO 08/03 1746 2151 Magnesium Oxide 400 MG ONE ONE 08/03 1545 DC / PO 08/03 1546 1655 Oxycodone/ 1 TAB Q6P PRN 08/03 1730 AC Acetaminophen PO Oxycodone/ 2 TAB Q6P PRN 08/03 1730 AC Acetaminophen PO Lines/Diet/Fluids Lines: peripheral lines Assessment/Plan Assessment: 40-year-old gentleman with a PMH of morbid obesity, right knee injury who presents with complaints of progressive shortness of breath with exertion over the past 1 month, seen in the ED the day prior to admission, was diagnosed with new onset atrial fibrillation, left AMA, experienced recurrence of significant dyspnea with mild exertion. Prior to leaving the hospital yesterday, the patient was provided with a prescription for Eliquis, Cardizem, Proair and a Medrol Dosepak which he had not started taking. VS on admission: BP 154 100, HR 134, RR 20, SPO2 97% on RA, T 99.4 Pertinent labs: WBC 13.8, H&H 14.1/42.2, platelet count 294K, INR 1.27, sodium 137, potassium 4.6, chloride 97, bicarbonate 29, BUN/Cr 13/0.8, glucose 119 Calcium: 10.3, albumin 4.1 ProBNP: 1713 AST/ALT: 95/140 Magnesium: 1.6 TFTs: TSH 1.710, free T4 1 0.00 UA: Unremarkable Utox: pending CXR: Enlarged cardiac silhouette but unchanged Admitted to telemetry floor Plan Atial Fibrillation with RVR * Started on IV heparin and IV cardizem drip * His heart rate is on the higher side throughout the day, so increased the drip to @12.5ml/hr * we will place on eliquis later, taper down the cardizem drip * EKG and Trops are negative. * on lasix 20mg IV for now * Mild elevation in liver enzymes, TFT's and lipid panel are unremarkable. * on board DVT prophylaxis * On IV heparin Code Status * Full code Problem List: 1. Atrial fibrillation with rapid ventricular response 2. New onset a-fib 3. Transaminitis 4. Morbid obesity 5. Alcohol use Pain Ratin Pain Location: n/a Pain Goal: Pain 4 or less Pain Plan: tylenol prn Percocet Tomorrow's Labs & Rationales: cbc as on iV heparin bep to monitor electrolytes as on IV diuretics
[2016-08-04 08:28] LABS: ABSOLUTE BASOPHIL COUNT 0 /CUMM (0.0-0.2); ABSOLUTE EOSINOPHIL COUNT 0 /CUMM (0.0-0.7); ABSOLUTE GRANULOCYTE CT 7.2 /CUMM (1.4-6.5); ABSOLUTE LYMPH COUNT 2.6 /CUMM (1.2-3.4); ABSOLUTE MONOCYTE COUNT 0.7 /CUMM (0.10-0.60); BASOPHIL % 0.5 % (0.0-2.0); EOSINOPHIL % 0.4 % (0-5); HEMATOCRIT 43.6 % (42-52); MEAN CORPUSCULAR HGB 32.2 PG (27.0-31.0); MEAN CORPUSCULAR HGB CONC 32.9 G/DL (33.0-37.0); MEAN CORPUSCULAR VOLUME 97.8 FL (80.0-94.0); MEAN PLATELET VOLUME 8.4 FL (7.4-10.4); PLATELET COUNT 283 /CUMM (130-400); RED BLOOD CELL CT 4.46 /CUMM (4.70-6.10); WHITE BLOOD CELL COUNT 10.6 /CUMM (4.8-10.8)
[2016-08-04 08:29] LABS: PTT 60 SEC (25-37)
[2016-08-04 08:31] VITALS: BP 146/109
--- NOTE | 2016-08-04 12:58 | NUR ---
1130: PT'S HEART RATE WENT UP TO 150'S; PT IN BATHROOM AT THIS TIME; PT ASYMPTOMATIC; MD LINCOLN MADE AWARE; WILL CONTINUE TO MONITOR.
[2016-08-04 16:54] VITALS: BP 140/98
[2016-08-04 18:09] LABS: PTT 74 SEC (25-37)
--- NOTE | 2016-08-04 18:58 | PN- Cardiology ---
Subjective Subjective: No specific complaints. Feels as though his breathing has improved. Remains in atrial fibrillation. The ventricular response rate to his atrial fibrillation is better controlled on IV diltiazem 12.5 mg/hour. Objective Vital Signs and I&Os Vital Signs Date Time Temp Pulse Resp B/P Pulse O2 O2 Flow FiO2 Ox Delivery Rate 08/04 1654 98.4 84 18 140/98 98 /06 0940 98 Room Air 08/04 0831 98.5 85 18 146/109 95 Room Air 08/04 0800 Room Air 08/04 0008 98.1 74 20 126/82 95 / 0000 97 Room Air 08/03 2038 Room Air Room Air Intake & Output 08/04 1600 08/04 0808/04 0000 08/03 1600 08/03 0000 Intake Total 1400 720 380 Output Total 1500 2650 1825 Balance -100 -1930 -1445 Intake, IV 400 20 Intake, Oral 1000 720 360 Output, Urine 1500 2650 1825 Patient 300 lb 300 lb Weight Physical Exam: Morbidly obese middle-aged male in no acute distress. Vital signs: See above. HEENT: Normocephalic, atraumatic, EOMI, moist membranes. Neck: No JVD, no bruits. Lungs: Clear to auscultation. Heart: S1, S2 with no murmur, gallop, or rub appreciated. PMI not well felt Abdomen: Soft, nontender, positive bowel sounds. Extremities: No edema. Current Medications: Current Medications Sig/Sergio Start time Last Medication Dose Route Stop Time Status Admin Acetaminophen 325 MG .STK-MED ONE 08/04 0356 DC PO 08/04 0357 Acetaminophen 650 MG Q6P PRN 08/03 1730 AC PO Albuterol Sulfate 3 ML DAILY NEEDED PRN 08/03 2145 AC INH Diltiazem HCl 125 MG Q12H 08/04 1645 DC Sodium Chloride 100 ML IV Diltiazem HCl 125 MG Q10H 08/04 1615 AC Sodium Chloride 100 ML IV Diltiazem HCl 125 MG Q24H 08/03 2130 DC 08/03 Sodium Chloride 100 ML IV 08/04 1644 2151 Furosemide 20 MG DAILY 08/04 1000 AC 08/04 IV 1042 Heparin Sodium 4,100 UNIT ONCE ONE 08/04 1130 DC 08/04 (Porcine) IV 08/04 1131 1218 Heparin Sodium 8,160 UNIT ONCE ONE 08/04 0150 DC 08/04 (Porcine) IV 08/04 0151 0229 Heparin Sodium 25,000 UNIT Q24H 08/03 1515 AC 08/03 (Porcine) IV 1614 Sodium Chloride 500 ML Magnesium Oxide 400 MG ONE ONE 08/04 0900 DC 08/04 PO 08/04 0901 1042 Oxycodone/ 1 TAB Q6P PRN 08/03 1730 AC Acetaminophen PO Oxycodone/ 2 TAB Q6P PRN 08/03 1730 AC Acetaminophen PO Patient Medication 1 ED ONE ONE 08/04 1415 DC 08/04 Teaching ED 08/04 1416 1445 Results Last 48 Hrs of Labs/Mics: Laboratory Tests 08/04/16 1630: APTT 74 H 08/04/16 0650: Anion Gap 12, Estimated GFR > 60, BUN/Creatinine Ratio 15.0, Phosphorus 5.2 H, Magnesium 1.8, Total Bilirubin 0.8, Direct Bilirubin 0.4, AST 99 H, ALT 134 H, Alkaline Phosphatase 74, Troponin I 0.02, Total Protein 7.5, Albumin 4.0, Triglycerides 96, Cholesterol 178, LDL Cholesterol, Calc 79, HDL Cholesterol 80 H, Cholesterol/HDL Ratio 2, APTT 60 H, CBC w Diff NO MAN DIFF REQ, RBC 4.46 L, MCV 97.8 H, MCH 32.2 H, RDW 14.0, MPV 8.4, Gran % 68.0, Lymphocytes % 24.7, Monocytes % 6.4, Eosinophils % 0.4, Basophils % 0.5, Absolute Granulocytes 7.2 H, Absolute Lymphocytes 2.6, Absolute Monocytes 0.7 H, Absolute Eosinophils 0, Absolute Basophils 0, PUBS MCHC 32.9 L 08/04/16 0550: Urine Opiates Screen < 100.00, Methadone Screen < 40, Barbiturate Screen < 60, Ur Phencyclidine Scrn < 6.00, Amphetamines Screen < 100, U Benzodiazepines Scrn < 85, Urine Cocaine Screen < 50, Urine Cannabis Screen < 5.00 08/03/16 2207: Troponin I 0.01, APTT 36 08/03/16 1853: Urine Color STRAW, Urine Clarity CLEAR, Urine pH 6.0, Ur Specific [place] 1.010, Urine Protein NEG, Urine Ketones NEG, Urine Nitrite NEG, Urine Bilirubin NEG, Urine Urobilinogen 0.2, Ur Leukocyte Esterase NEG, Ur Microscopic EXAM NOT REQUIRED, Urine Hemoglobin NEG, Urine Glucose NEG 08/03/16 1540: Anion Gap 11, Estimated GFR > 60, BUN/Creatinine Ratio 16.3, Glucose 119 H, Hemoglobin A1c 5.9 H, Calcium 10.3 H, Magnesium 1.6, Total Bilirubin 0.6, AST 95 H, ALT 140 H, Alkaline Phosphatase 75, Troponin I 0.01, Vrh-[id number]-Xsqspbfpguu Pept 1730 H, Total Protein 7.7, Albumin 4.1, Globulin 3.6, Albumin/Globulin Ratio 1.1, TSH 1.710, Free T4 1.00, Lyme Disease Antibody Pending 08/03/16 1510: PT 13.3 H, INR 1.27 H, CBC w Diff MAN DIFF ORDERED, RBC 4.36 L, MCV 96.6 H, MCH 32.4 H, RDW 13.8, MPV 8.1, Gran % 86.5 H, Lymphocytes % 7.8 L, Monocytes % 5.3, Eosinophils % 0.1, Basophils % 0.3, Absolute Granulocytes 11.9 H, Segmented Neutrophils 85 H, Absolute Lymphocytes 1.1 L, Lymphocytes 14 L, Monocytes 1 L, Absolute Monocytes 0.7 H, Absolute Eosinophils 0, Absolute Basophils 0, Platelet Estimate ADEQUATE, Normochromic RBCs VERIFIED, Poikilocytosis 1+, Stomatocytes 1+, PUBS MCHC 33.5 Assessment/Plan Assessment/Plan "New onset" atrial fibrillation with progressive dyspnea on exertion in this middle-aged male with morbid obesity. He has had a good diuresis over the past 24 hours. * Continue on telemetry. * Switch to by mouth furosemide. * IV heparin for the short-term and place on factor Xa inhibitor Eliquis ( apixaban). We will plan for outpatient cardioversion in approximately 3 weeks. * Continue IV diltiazem for ventricular response rate control. When ventricular response rate control is achieved switched to oral diltiazem. * Obtain echocardiogram. * Note that he is at risk for diabetes mellitus and needs further outpatient evaluation and management. * Replete magnesium and maintain at or above 2.0 mEq per liter. * Repeat CXR in a.m. * Recommend outpatient study for obstructive sleep apnea. * DVT prophylaxis being addressed with anticoagulation for atrial fibrillation. Continue telemetry? Yes
[2016-08-04 20:00] VITALS: BP 160/102
[2016-08-04 23:46] VITALS: BP 167/94
[2016-08-05] VITALS: BP 164/92
[2016-08-05 04:31] LABS: PTT 69 SEC (25-37)
--- NOTE | 2016-08-05 07:17 | PN- Housestaff ---
Subjective Follow-up For: New onset Atrial Fibrillation Tele-Events Since Last Visit: Atrial flutter 54-85bpm Dipped down to 45 at 1am Subjective: I saw and examined the patient today morning He is doing well, denies any chest pain, shortness of breath, dizziness. Able to walk around in hallways. Had erythema on the legs, mildly itchy, appears secondary to sunburn. Review of Systems Constitutional: Reports: see HPI. Comments: ROS negative except above. Objective Last 24 Hrs of Vital Signs/I&O Vital Signs Date Time Temp Pulse Resp B/P Pulse O2 O2 Flow FiO2 Ox Delivery Rate 08/05 0000 68 20 164/92 08/05 0000 95 Room Air 08/04 2346 97.9 75 20 167/94 95 08/04 2000 160/102 08/04 1925 96 Room Air Room Air 08/04 1654 98.4 84 18 140/98 98 08/04 1600 Room Air 08/04 0940 98 Room Air 08/04 0831 98.5 85 18 146/109 95 Room Air 08/04 0800 Room Air Intake & Output 08/05 0800 08/05 0000 08/04 1600 Intake Total 1160 1188 1400 Output Total 1200 2100 1500 Balance -40 -912 -100 Intake, IV 360 388 400 Intake, Oral 810 029 8159 Number 1 Bowel Movements Output, Urine 1200 2100 1500 Physical Exam General Appearance: Alert, Oriented X3, Cooperative Skin: No Breakdown HEENT: Atraumatic, PERRLA Neck: Supple Cardiovascular: Normal S1, Normal S2, No Murmurs, irregularly irregular Lungs: Clear to Auscultation, Normal Air Movement Abdomen: Normal Bowel Sounds, Soft, No Tenderness Neurological: Normal Gait, Normal Speech, Strength at 5/5 X4 Ext, Normal Tone Extremities: No Clubbing, No Cyanosis, 3+ pitting edema Vascular: Normal Pulses, Pulses Symmetrical Current Medications: Current Medications Sig/Sergio Start time Last Medication Dose Route Stop Time Status Admin Acetaminophen 650 MG Q6P PRN 08/03 1730 AC PO Albuterol Sulfate 3 ML DAILY NEEDED PRN 08/03 2145 AC INH Diltiazem HCl 125 MG Q24H 08/05 0045 AC 08/05 Sodium Chloride 100 ML IV 0447 Diltiazem HCl 125 MG Q8H 08/04 2300 DC Sodium Chloride 100 ML IV Diltiazem HCl 125 MG Q12H 08/04 1645 DC Sodium Chloride 100 ML IV Diltiazem HCl 125 MG Q10H 08/04 1615 DC Sodium Chloride 100 ML IV Diltiazem HCl 125 MG Q24H 08/03 2130 DC 08/03 Sodium Chloride 100 ML IV 08/04 1644 2151 Furosemide 40 MG DAILY 08/05 1000 AC PO Furosemide 20 MG DAILY 08/04 1000 DC 08/04 IV 1042 Heparin Sodium 5,000 UNIT .STK-MED ONE 08/04 1212 DC (Porcine) IV 08/04 1213 Heparin Sodium 4,100 UNIT ONCE ONE 08/04 1130 DC 08/04 (Porcine) IV 08/04 1131 1218 Heparin Sodium 25,000 UNIT Q24H 08/03 1515 AC 08/05 (Porcine) IV 0449 Sodium Chloride 500 ML Magnesium Oxide 400 MG ONE ONE 08/04 0900 DC 08/04 PO 08/04 0901 1042 Oxycodone/ 1 TAB Q6P PRN 08/03 1730 AC Acetaminophen PO Oxycodone/ 2 TAB Q6P PRN 08/03 1730 AC Acetaminophen PO Patient Medication 1 ED ONE ONE 08/04 1415 DC 08/04 Teaching ED 08/04 1416 1445 Last 24 Hrs of Lab/Cristopher Results Last 24 Hrs of Labs/Mics: Laboratory Tests 08/05/16 0650: CBC w Diff NO MAN DIFF REQ, RBC 4.51 L, MCV 97.6 H, MCH 32.3 H, RDW 14.1, MPV 8.4, Gran % 69.2, Lymphocytes % 22.5, Monocytes % 6.5, Eosinophils % 1.2, Basophils % 0.6, Absolute Granulocytes 7.5 H, Absolute Lymphocytes 2.4, Absolute Monocytes 0.7 H, Absolute Eosinophils 0.1, Absolute Basophils 0.1, PUBS MCHC 33.1 08/05/16 0400: Anion Gap 11, Estimated GFR > 60, BUN/Creatinine Ratio 18.6, Magnesium 2.0, APTT 69 H 08/04/16 1630: APTT 74 H Lines/Diet/Fluids Lines: peripheral lines Assessment/Plan Assessment: 40-year-old gentleman with a PMH of morbid obesity, right knee injury who presents with complaints of progressive shortness of breath with exertion over the past 1 month, seen in the ED the day prior to admission, was diagnosed with new onset atrial fibrillation, left AMA, experienced recurrence of significant dyspnea with mild exertion. Prior to leaving the hospital yesterday, the patient was provided with a prescription for Eliquis, Cardizem, Proair and a Medrol Dosepak which he had not started taking. VS on admission: BP 154 100, HR 134, RR 20, SPO2 97% on RA, T 99.4 Pertinent labs: WBC 13.8, H&H 14.1/42.2, platelet count 294K, INR 1.27, sodium 137, potassium 4.6, chloride 97, bicarbonate 29, BUN/Cr 13/0.8, glucose 119 Calcium: 10.3, albumin 4.1 ProBNP: 1713 AST/ALT: 95/140 Magnesium: 1.6 TFTs: TSH 1.710, free T4 1 0.00 UA: Unremarkable Utox: pending CXR: Enlarged cardiac silhouette but unchanged Admitted to telemetry floor Plan Atial Fibrillation with RVR * Started on IV heparin and IV cardizem drip intially * Today we started patient on cardizem 30mg Q6 and eliquis 5mg BID * Discontinud his furosemide due to excessive drinking and urination. * His HR is in 90-100's so far, we will monitor for today. * CHADVasc score -1 * EKG and Trops are negative. * Mild elevation in liver enzymes, TFT's and lipid panel are unremarkable. * on board Impaired glucose tolerance HbA1C of 5.9, needs outpatient follow up. DVT prophylaxis * On IV heparin Code Status * Full code Problem List: 1. New onset a-fib 2. Atrial fibrillation with rapid ventricular response 3. Congestive heart failure 4. Alcohol use Pain Ratin Pain Location: n/a Pain Goal: Pain 4 or less Pain Plan: tylenol prn motrin prn Tomorrow's Labs & Rationales: none
[2016-08-05 08:09] LABS: ABSOLUTE BASOPHIL COUNT 0.1 /CUMM (0.0-0.2); ABSOLUTE EOSINOPHIL COUNT 0.1 /CUMM (0.0-0.7); ABSOLUTE GRANULOCYTE CT 7.5 /CUMM (1.4-6.5); ABSOLUTE LYMPH COUNT 2.4 /CUMM (1.2-3.4); ABSOLUTE MONOCYTE COUNT 0.7 /CUMM (0.10-0.60); BASOPHIL % 0.6 % (0.0-2.0); EOSINOPHIL % 1.2 % (0-5); GRANULOCYTE % 69.2 % (42.2-75.2); MEAN CORPUSCULAR HGB 32.3 PG (27.0-31.0); MEAN CORPUSCULAR HGB CONC 33.1 G/DL (33.0-37.0); MEAN CORPUSCULAR VOLUME 97.6 FL (80.0-94.0); MEAN PLATELET VOLUME 8.4 FL (7.4-10.4); PLATELET COUNT 305 /CUMM (130-400); RBC DISTRIBUTION WIDTH 14.1 % (11.5-14.5); RED BLOOD CELL CT 4.51 /CUMM (4.70-6.10); WHITE BLOOD CELL COUNT 10.8 /CUMM (4.8-10.8)
[2016-08-05 08:16] VITALS: BP 133/84
--- NOTE | 2016-08-05 10:08 | RADIOLOGY REPORT ---
EXAMINATION: XR PORTABLE CHEST CLINICAL INFORMATION: Shortness of breath. COMPARISON: 08/02/2016 TECHNIQUE: Portable AP view of the chest was obtained. FINDINGS: Lungs are well expanded and clear. Again noted is the large cardiac silhouette. No interstitial edema, pleural effusion or pneumothorax. The visualized bones are unremarkable. IMPRESSION: 1. Cardiomegaly. 2. No acute pulmonary abnormalities.
--- NOTE | 2016-08-05 10:26 | PN- Cardiology ---
Subjective Subjective: No complaints this morning and overall continues to feel improved. Remains in atrial fibrillation on telemetry with a ventricular response rate that has been varying between 55-85 bpm. The slowest ventricular response was observed around 1:00 AM when he was transiently bradycardic, presumably while he slept, with a rate that went down to 45 bpm. Objective Vital Signs and I&Os Vital Signs Date Time Temp Pulse Resp B/P Pulse O2 O2 Flow FiO2 Ox Delivery Rate 08/05 0918 97 Room Air Room Air 08/05 0822 98 130/84 08/05 0816 99.8 96 18 133/84 97 Room Air 08/05 0000 68 20 164/92 08/05 0000 95 Room Air 08/04 2346 97.9 75 20 167/94 95 08/04 2000 160/102 08/04 1925 96 Room Air Room Air 08/04 1654 98.4 84 18 140/98 98 08/04 1600 Room Air Intake & Output 08/05 1600 08/05 0800 08/05 0000 08/04 1600 08/04 0800 08/04 0000 Intake Total 1160 1188 1400 720 380 Output Total 1200 2100 1500 2650 1825 Balance -40 -912 -100 -1930 -1445 Intake, IV 360 388 400 20 Intake, Oral 625 709 4716 720 360 Number 1 Bowel Movements Output, Urine 1200 2100 1500 2650 1825 Patient 300 lb Weight Physical Exam: Morbidly obese middle-aged male in no acute distress. Vital signs: See above. HEENT: Normocephalic, atraumatic, EOMI, moist membranes. Neck: No JVD, no bruits. Lungs: Clear to auscultation. Heart: S1, S2 with no murmur, gallop, or rub appreciated. PMI not well felt Abdomen: Soft, nontender, positive bowel sounds. Extremities: No edema. Assessment/Plan Assessment/Plan "New onset" atrial fibrillation with progressive dyspnea on exertion in this middle-aged male with morbid obesity. He has had a good diuresis since admission of over 4 L. * Ambulate and continue on telemetry to assess his ventricular response to exertion. * Discontinue furosemide. We'll determine if this needs to be restarted on an outpatient basis. * Discontinue IV heparin for the short-term and give the factor the Xa inhibitor Eliquis (apixaban). The onset of action for Eliquis is between 3-4 hours, so stop IV heparin now and give first dosage of Eliquis now and then second doses this evening and then continue with recommended 5 mg twice daily dosing starting tomorrow. Call me with any questions. * We will plan for for discharge later today and readmit for outpatient cardioversion in approximately 3 weeks. We will also discuss potential future atrial fibrillation ablation with the patient and electrophysiology on an outpatient basis. * He has been switched from IV diltiazem to oral diltiazem. * Will review echocardiogram. * Note that he is at risk for diabetes mellitus and needs further outpatient evaluation and management. * Note that his potassium and magnesium are acceptable. * Recommend outpatient study for obstructive sleep apnea. * DVT prophylaxis being addressed with anticoagulation for atrial fibrillation. Continue telemetry? Yes
--- NOTE | 2016-08-05 16:16 | Patient Discharge Instructions ---
Discharge Instructions General Discharge Information You were seen/treated for: New onset Atrial Fibrillation Watch for these problems: Sudden onset of heart racing, chest pain, shortness of breath - seek immediate medical attention Increased drinking, urination, weight gain seek outpatient medical assistance Special Instructions: Please follow up with your PCP (emmanuel mason) in a week Please follow up with in a week. Please discuss for future outpatient cardioversion in approximately 3 weeks. Please follow up regarding HbA1C, needs further outpatient evaluation and management for possible diabetes. You may need outpatient study for obstructive sleep apnea. We are restarting furosemide medication. Diet Continue normal diet: Yes Recommended Diet: Heart Healthy Activity Full Activity/No Limits: Yes Activity Self Limited: Yes Acute Coronary Syndrome Inclusion Criteria At DC or during hospital stay patient has or had the following: ACS DIAGNOSIS No Discharge Core Measures Meds if any: Prescribed or Continued at Discharge Meds if any: NOT Prescribed or Continued at Discharge Congestive Heart Failure Inclusion Criteria At DC or during hospital stay patient has or had the following: CHF DIAGNOSIS Yes Discharge Core Measures Meds if any: Prescribed or Continued at Discharge Meds if any: NOT Prescribed or Continued at Discharge Cerebrovascular accident Inclusion Criteria At DC or during hospital stay patient has or had the following: CVA/TIA Diagnosis No Discharge Core Measures Meds if any: Prescribed or Continued at Discharge Meds if any: NOT Prescribed or Continued at Discharge Venous thromboembolism Inclusion Criteria VTE Diagnosis No VTE Type NONE VTE Confirmed by (Test) NONE Discharge Core Measures - Per Current guidelines, there needs to be overlap - treatment for the first 5 days of Warfarin therapy. - If discharged on Warfarin prior to 5 days of - overlap therapy, the patient will need to be - assessed for post discharge needs including - *Post discharge parental anticoagulation - *Warfarin and/or parental anticoagulation education - *Follow up date to check INR post discharge At least 5 days overlap therapy as Inpatient No Meds if any: Prescribed or Continued at Discharge Note: Overlap Therapy is Warfarin and Anticoagulant Meds if any: NOT Prescribed or Continued at Discharge
[2016-08-05 16:27] VITALS: BP 124/95
--- NOTE | 2016-08-05 21:14 | ECHOCARDIOGRAM REPORT ---
HARSHAD MUNOZ Age: 40 : 1975 Gender: M Exam Date: 08/05/2016 07:35 Exam Location: 1 [address] Ht (in): 71 Wt (lb): 300 BSA: 2.67 BP: 146 / 109 Ordering Physician: Bright Moore MD Referring Physician: BRIGHT MOORE MD Technologist: Mei Pnoce [facility] Room Number: 179-1 Indications: AFIB/FLUTTER Rhythm: Atrial fibrillation Technical Quality: Poor FINDINGS Left Ventricle Mild left ventricular dilatation. Moderate concentric left ventricular hypertrophy. Moderately reduced global left ventricular systolic function. Moderately abnormal left ventricular ejection fraction estimated at 35-40%. Right Ventricle Severe right ventricular dilatation. Right Atrium Moderate right atrial dilatation. Left Atrium Severe left atrial dilatation. Mitral Valve Mildly calcified mitral valve annulus. Structurally normal mitral valve. Moderate mitral regurgitation. Aortic Valve Structurally normal trileaflet aortic valve. No aortic valve stenosis or regurgitation. Tricuspid Valve Structurally normal tricuspid valve. Trace tricuspid regurgitation. No evidence of pulmonary hypertension. Right ventricular systolic pressure estimated to be within the normal range at 16 mmHg. Pulmonic Valve Pulmonic valve not well visualized. No pulmonic regurgitation. Pericardium No pericardial effusion. Great Vessels Normal size aortic root. Mildly dilated ascending aorta. CONCLUSIONS Mild left ventricular dilatation. Moderate concentric left ventricular hypertrophy. Moderately reduced global left ventricular systolic function. Moderately abnormal left ventricular ejection fraction estimated at 35-40%. Severe right ventricular dilatation. Moderate right atrial dilatation. Severe left atrial dilatation. Moderate mitral regurgitation. Trace tricuspid regurgitation. No evidence of pulmonary hypertension. Mildly dilated ascending aorta. Alban Shen M.D. (Electronically Signed) Final Date: 05 August 2016 21:14 MEASUREMENTS (Male / Female) Normal Values 2D ECHO LV Diastolic Diameter PLAX 6.1 cm 4.2 - 5.9 / 3.9 - 5.3 cm LV Systolic Diameter PLAX 5.5 cm 2.1 - 4.0 cm LV Fractional Shortening PLAX 9.8 % 25 - 46 % LV Ejection Fraction 2D Teich 21.1 % IVS Diastolic Thickness 1.4 cm LVPW Diastolic Thickness 1.5 cm LV Relative Wall Thickness 0.5 RV Internal Dim ED PLAX 5.2 cm 1.9 - 3.8 cm LVOT Diameter 3.1 cm Aortic Root Diameter 3.5 cm LA Systolic Diameter LX 4.9 cm 3.0 - 4.0 / 2.7 - 3.8 cm LA Volume 120.0 cm 18 - 58 / 22 - 52 cm Ascending Aorta Diameter 3.9 cm DOPPLER AV Peak Velocity 107.0 cm/s AV Peak Gradient 4.6 mmHg AV Mean Velocity 78.1 cm/s AV Mean Gradient 3.0 mmHg AV Velocity Time Integral 21.4 cm LVOT Peak Velocity 75.9 cm/s LVOT Peak Gradient 2.3 mmHg LVOT Mean Velocity 54.2 cm/s LVOT Mean Gradient 1.0 mmHg LVOT Velocity Time Integral 15.8 cm LVOT Stroke Volume 119.3 cm AV Area Cont Eq vti 5.6 cm AV Area Cont Eq pk 5.4 cm MV Peak Velocity 170.0 cm/s MV Peak Gradient 11.6 mmHg MV Mean Velocity 96.9 cm/s MV Mean Gradient 5.0 mmHg Mitral E Point Velocity 135.0 cm/s MV PHT Velocity 175.0 cm/s MV Deceleration Blair 523.0 cm/s MV Pressure Half Time 100.4 ms MV Area PHT 2.2 cm MV Deceleration Time 123.0 ms MR Peak Velocity 519.0 cm/s MR Peak Gradient 107.7 mmHg TR Peak Velocity 167.0 cm/s TR Peak Gradient 11.2 mmHg Right Atrial Pressure 5.0 mmHg Pulmonary Artery Systolic Pressu 16.2 mmHg Right Ventricular Systolic Press 16.2 mmHg PV Peak Velocity 78.6 cm/s PV Peak Gradient 2.5 mmHg PV Mean Velocity 58.9 cm/s PV Mean Gradient 2.0 mmHg PV Velocity Time Integral 18.9 cm LV E' Lateral Velocity 11.7 cm/s Mitral E to LV E' Lateral Ratio 11.5 LV E' Septal Velocity 8.6 cm/s Mitral E to LV E' Septal Ratio 15.7
[2016-08-05 23:00] VITALS: BP 132/72
--- NOTE | 2016-08-06 07:28 | PN- Housestaff ---
Subjective Follow-up For: New onset A.fib CHF Subjective: I saw and examined the patient today morning He is lying in the bed, offers no complaints. Reports that yesterday informed him about changing his thyroid medications. otherwise no concerns. Review of Systems Constitutional: Reports: see HPI. Comments: ROS negative except the above. Objective Last 24 Hrs of Vital Signs/I&O Vital Signs Date Time Temp Pulse Resp B/P Pulse O2 O2 Flow FiO2 Ox Delivery Rate 08/06 0536 90 128/80 08/05 2300 98.0 92 20 132/72 95 Room Air 08/05 2256 92 132/72 08/05 1715 74 124/95 08/05 1627 98.7 74 18 124/95 95 Room Air 08/05 1605 95 Room Air 08/05 1200 98.2 08/05 1142 92 112/86 08/05 0918 97 Room Air Room Air 08/05 0822 98 130/84 08/05 0816 99.8 96 18 133/84 97 Room Air Intake & Output 08/06 0800 08/06 0000 08/05 1600 Intake Total 105 535 2346 Output Total 2000 1500 5770 Balance -1100 -600 -3370 Intake, IV 0 0 Intake, Oral 898 062 2485 Number 0 0 Bowel Movements Output, Urine 2000 1500 5770 Physical Exam General Appearance: Alert, Oriented X3, Cooperative, No Acute Distress Skin: No Breakdown, erythema blanchable over the lower extremities. HEENT: Atraumatic, PERRLA, EOMI Neck: Supple, JVD present Cardiovascular: Normal S1, Normal S2 Lungs: Clear to Auscultation, Normal Air Movement Abdomen: Normal Bowel Sounds, Soft, No Tenderness Neurological: Normal Speech, Strength at 5/5 X4 Ext, Normal Tone, Sensation Intact Extremities: No Clubbing, No Cyanosis, 4+ edema present Vascular: Normal Pulses, Pulses Symmetrical Assessment/Plan Assessment: 40-year-old gentleman with a PMH of morbid obesity, right knee injury who presents with complaints of progressive shortness of breath with exertion over the past 1 month, seen in the ED the day prior to admission, was diagnosed with new onset atrial fibrillation, left AMA, experienced recurrence of significant dyspnea with mild exertion. Prior to leaving the hospital yesterday, the patient was provided with a prescription for Eliquis, Cardizem, Proair and a Medrol Dosepak which he had not started taking. VS on admission: BP 154 100, HR 134, RR 20, SPO2 97% on RA, T 99.4 Pertinent labs: WBC 13.8, H&H 14.1/42.2, platelet count 294K, INR 1.27, sodium 137, potassium 4.6, chloride 97, bicarbonate 29, BUN/Cr 13/0.8, glucose 119 Calcium: 10.3, albumin 4.1 ProBNP: 1713 AST/ALT: 95/140 Magnesium: 1.6 TFTs: TSH 1.710, free T4 1 0.00 UA: Unremarkable Utox: pending CXR: Enlarged cardiac silhouette but unchanged Admitted to telemetry floor Plan Atial Fibrillation with RVR * Started on IV heparin and IV cardizem drip intially * Today we started patient on cardizem 30mg Q6 and eliquis 5mg BID * Discontinud his furosemide due to excessive drinking and urination. * His HR is in 90-100's so far, we will monitor for today. * CHADVasc score -1 * EKG and Trops are negative. * Mild elevation in liver enzymes, TFT's and lipid panel are unremarkable. * ECHO shows Moderate reduction in global ventricular systolic function. LVEF 35 -40%. Tachycardia induced cardiomyopathy * Patient had EF of 35-40% without any wallmotion abnormalities * need to be started on ACEI - as patient is already coughing we will start ARB * CXR today didnt reveal any acute process. (requested as he had cough and yellowish phlegm production) Impaired glucose tolerance HbA1C of 5.9, needs outpatient follow up. DVT prophylaxis * On IV heparin Code Status * Full code Problem List: 1. New onset a-fib 2. Hypomagnesemia 3. Transaminitis 4. SIRS (systemic inflammatory response syndrome) 5. Morbid obesity 6. Congestive heart failure Pain Ratin Pain Location: n/a Pain Goal: Pain 4 or less Pain Plan: Tylneol prn Tomorrow's Labs & Rationales: bep to monitor electrolytes Mag
[2016-08-06 07:55] LABS: ABSOLUTE BASOPHIL COUNT 0 /CUMM (0.0-0.2); ABSOLUTE EOSINOPHIL COUNT 0.2 /CUMM (0.0-0.7); ABSOLUTE GRANULOCYTE CT 5.5 /CUMM (1.4-6.5); ABSOLUTE LYMPH COUNT 1.7 /CUMM (1.2-3.4); ABSOLUTE MONOCYTE COUNT 0.5 /CUMM (0.10-0.60); BASOPHIL % 0.6 % (0.0-2.0); EOSINOPHIL % 2.9 % (0-5); GRANULOCYTE % 68.4 % (42.2-75.2); HEMATOCRIT 44.2 % (42-52); MEAN CORPUSCULAR HGB 32.5 PG (27.0-31.0); MEAN CORPUSCULAR HGB CONC 33.3 G/DL (33.0-37.0); MEAN CORPUSCULAR VOLUME 97.6 FL (80.0-94.0); MEAN PLATELET VOLUME 8.2 FL (7.4-10.4); PLATELET COUNT 273 /CUMM (130-400); RED BLOOD CELL CT 4.53 /CUMM (4.70-6.10); WHITE BLOOD CELL COUNT 8.1 /CUMM (4.8-10.8)
[2016-08-06 08:01] VITALS: BP 110/60
[2016-08-06 16:28] VITALS: BP 142/90
--- NOTE | 2016-08-06 16:32 | RADIOLOGY REPORT ---
EXAMINATION: XR CHEST CLINICAL INFORMATION: Productive cough COMPARISON: Multiple priors, most recent 08/05/2014 TECHNIQUE: 2 views of the chest were obtained. FINDINGS: Multiple linear structures arranged in vertical fashion project over the midline of the chest, most likely external to the patient. These somewhat limit evaluation. The cardiac silhouette appears stable. Lungs are clear without focal consolidation. No effusion. No pneumothorax. Visualized osseous arches are unremarkable. IMPRESSION: Somewhat limited evaluation. No convincing evidence for an acute cardiopulmonary process.
--- NOTE | 2016-08-06 21:34 | PN- Cardiology ---
Subjective Subjective: States that he feels he is "coming down with something". Feels feverish, diaphoretic, etc. Ambulating well with acceptable ventricular response to his atrial fibrillation on his present regimen. Objective Vital Signs and I&Os Vital Signs Date Time Temp Pulse Resp B/P Pulse O2 O2 Flow FiO2 Ox Delivery Rate 08/06 2042 97 Room Air Room Air 08/06 1655 79 142/90 08/06 1628 98.6 79 20 142/90 98 Room Air 08/06 1600 Room Air 08/06 1312 99 Room Air Room Air 08/06 1256 118/68 08/06 0801 97.1 98 18 110/60 98 Room Air 08/06 0536 90 128/80 08/05 2300 98.0 92 20 132/72 95 Room Air 08/05 2256 92 132/72 Intake & Output 08/06 1600 08/06 0800 08/06 0000 08/05 1600 08/05 0800 08/05 0000 Intake Total 600 498 302 4037 1160 1188 Output Total 2350 2000 1500 5770 1200 2100 Balance -1750 -1100 -600 -3370 -40 -912 Intake, IV 0 0 360 388 Intake, Oral 600 195 172 8172 800 800 Number 0 0 1 Bowel Movements Output, Urine 2350 1999 1500 5770 1200 2100 Physical Exam: Morbidly obese middle-aged male in no acute distress. Vital signs: See above. HEENT: Normocephalic, atraumatic, EOMI, moist membranes. Neck: No JVD, no bruits. Lungs: Clear to auscultation. Heart: S1, S2 with no murmur, gallop, or rub appreciated. PMI not well felt Abdomen: Soft, nontender, positive bowel sounds. Extremities: No edema. Current Medications: Current Medications Sig/Sergio Start time Last Medication Dose Route Stop Time Status Admin Acetaminophen 650 MG Q6P PRN 08/03 1730 AC PO Albuterol Sulfate 3 ML DAILY NEEDED PRN 08/03 2145 AC INH Apixaban 5 MG BID 08/05 1000 AC 08/06 PO 2111 Diltiazem HCl 30 MG Q6 08/05 0756 AC 08/06 PO 1655 Diphenhydramine HCl 1 AJAY ONCE PRN 08/05 1445 AC TOP Oxycodone/ 1 TAB Q6P PRN 08/03 1730 AC Acetaminophen PO Oxycodone/ 2 TAB Q6P PRN 08/03 1730 AC Acetaminophen PO Results Last 48 Hrs of Labs/Mics: Laboratory Tests 08/06/16 0620: Anion Gap 10, Estimated GFR > 60, BUN/Creatinine Ratio 15.0, CBC w Diff NO MAN DIFF REQ, RBC 4.53 L, MCV 97.6 H, MCH 32.5 H, RDW 14.0, MPV 8.2, Gran % 68.4, Lymphocytes % 21.3, Monocytes % 6.8, Eosinophils % 2.9, Basophils % 0.6, Absolute Granulocytes 5.5, Absolute Lymphocytes 1.7, Absolute Monocytes 0.5, Absolute Eosinophils 0.2, Absolute Basophils 0, PUBS MCHC 33.3 08/05/16 1600: APTT Cancelled 08/05/16 0650: CBC w Diff NO MAN DIFF REQ, RBC 4.51 L, MCV 97.6 H, MCH 32.3 H, RDW 14.1, MPV 8.4, Gran % 69.2, Lymphocytes % 22.5, Monocytes % 6.5, Eosinophils % 1.2, Basophils % 0.6, Absolute Granulocytes 7.5 H, Absolute Lymphocytes 2.4, Absolute Monocytes 0.7 H, Absolute Eosinophils 0.1, Absolute Basophils 0.1, PUBS MCHC 33.1 08/05/16 0400: Anion Gap 11, Estimated GFR > 60, BUN/Creatinine Ratio 18.6, Magnesium 2.0, APTT 69 H Recent Imaging Studies: Echocardiogram (08/05/2016): Mild left ventricular dilatation. Moderate concentric left ventricular hypertrophy. Moderately reduced global left ventricular systolic function. Moderately abnormal left ventricular ejection fraction estimated at 35-40%. Severe right ventricular dilatation. Moderate right atrial dilatation. Severe left atrial dilatation. Moderate mitral regurgitation. Trace tricuspid regurgitation. No evidence of pulmonary hypertension. Mildly dilated ascending aorta. Assessment/Plan Assessment/Plan "New onset" atrial fibrillation with progressive dyspnea on exertion in this middle-aged male with morbid obesity and the new discovery of a cardiomyopathy. He has had a good diuresis since admission. * Ambulate and continue on telemetry to assess his ventricular response to exertion. * Will maintain on low dose diuretic therapy (furosemide 20 mg daily), given his echocardiographic findings. * Continue on the factor the Xa inhibitor Eliquis (apixaban) 5 mg twice daily. * We will plan for discharge in the morning assuming he doesn't develop a pneumonia and readmit for outpatient cardioversion in approximately 3 weeks. We will also discuss potential future atrial fibrillation ablation with the patient and electrophysiology on an outpatient basis. * Continue oral diltiazem. * Note that he is at risk for diabetes mellitus and needs further outpatient evaluation and management. * Note that his potassium is acceptable. * Follow-up calcium level. * Recommend outpatient study for obstructive sleep apnea. * DVT prophylaxis being addressed with anticoagulation for atrial fibrillation. Continue telemetry? Yes
[2016-08-06 22:53] VITALS: BP 144/94
[2016-08-07 08:49] LABS: ABSOLUTE BASOPHIL COUNT 0 /CUMM (0.0-0.2); ABSOLUTE EOSINOPHIL COUNT 0.3 /CUMM (0.0-0.7); ABSOLUTE LYMPH COUNT 2.2 /CUMM (1.2-3.4); ABSOLUTE MONOCYTE COUNT 0.6 /CUMM (0.10-0.60); BASOPHIL % 0.5 % (0.0-2.0); EOSINOPHIL % 3.4 % (0-5); GRANULOCYTE % 68.8 % (42.2-75.2); HEMATOCRIT 46.6 % (42-52); MEAN CORPUSCULAR HGB 32.4 PG (27.0-31.0); MEAN CORPUSCULAR VOLUME 98.3 FL (80.0-94.0); MEAN PLATELET VOLUME 8.3 FL (7.4-10.4); PLATELET COUNT 307 /CUMM (130-400); RED BLOOD CELL CT 4.75 /CUMM (4.70-6.10); WHITE BLOOD CELL COUNT 10.1 /CUMM (4.8-10.8)
[2016-08-07 09:15] VITALS: BP 150/80
--- NOTE | 2016-08-07 09:52 | PN- Housestaff ---
Subjective Follow-up For: New onset atrial fibrillation CHF Complaints: no complaints Tele-Events Since Last Visit: Atrial fibrillation, heart rate between 42-95, no any overnight events Subjective: Patient is seen and examined at the bedside. We discussed about the management of atrial fibrillation, obesity. I advised her to follow-up with PCP and Dr. Shen as an outpatient for further workup of atrial fibrillation. We discussed about the importance of anticoagulant. Review of Systems Constitutional: Denies: no symptoms. Cardiovascular: Denies: no symptoms. Respiratory: Reports: short of breath. Gastrointestinal: Denies: no symptoms. Neurological/Psychological: Denies: no symptoms. Objective Last 24 Hrs of Vital Signs/I&O Vital Signs Date Time Temp Pulse Resp B/P Pulse O2 O2 Flow FiO2 Ox Delivery Rate 08/07 1123 94 Room Air 08/07 0915 98.7 82 18 150/80 96 Room Air 08/07 0556 84 08/06 2357 84 08/06 2253 98.2 69 20 144/94 96 Room Air Intake & Output 08/07 1600 08/07 0800 08/07 0000 Intake Total 650 500 Output Total 1550 850 Balance -900 -350 Intake, IV 0 Intake, Oral 650 500 Number 0 Bowel Movements Output, Urine 1550 850 Physical Exam General Appearance: Alert, Oriented X3, Cooperative, morbidly obese Cardiovascular: irregularly irregular Lungs: bilateral decreased air entry, mild basilar crackles Abdomen: Soft, distended Extremities: bilateral lower leg edema Vascular: Normal Pulses, Pulses Symmetrical Current Medications: Current Medications Sig/Sergio Start time Last Medication Dose Route Stop Time Status Admin Acetaminophen 650 MG Q6P PRN 08/03 1730 DCD PO Albuterol Sulfate 3 ML DAILY NEEDED PRN 08/03 2145 DC INH Apixaban 5 MG BID 08/05 1000 DCD 08/07 PO 0815 Diltiazem HCl 120 MG DAILY 08/07 1126 DCD 08/07 PO 1216 Diltiazem HCl 30 MG Q6 08/05 0756 DC 08/07 PO 0556 Diphenhydramine HCl 1 AJAY ONCE PRN 08/05 1445 DCD 08/07 TOP 0815 Furosemide 20 MG DAILY 08/07 1000 DCD 08/07 PO 0815 Oxycodone/ 1 TAB Q6P PRN / 1730 DCD Acetaminophen PO Oxycodone/ 2 TAB Q6P PRN 08/03 1730 DCD Acetaminophen PO Last 24 Hrs of Lab/Cristopher Results Last 24 Hrs of Labs/Mics: Laboratory Tests 08/07/16 0710: Anion Gap 9, Estimated GFR > 60, BUN/Creatinine Ratio 17.5, Calcium 10.3 H, Magnesium 2.0, CBC w Diff NO MAN DIFF REQ, RBC 4.75, MCV 98.3 H, MCH 32.4 H, RDW 14.0, MPV 8.3, Gran % 68.8, Lymphocytes % 21.3, Monocytes % 6.0, Eosinophils % 3.4, Basophils % 0.5, Absolute Granulocytes 7.0 H, Absolute Lymphocytes 2.2, Absolute Monocytes 0.6, Absolute Eosinophils 0.3, Absolute Basophils 0, PUBS MCHC 33.0 Assessment/Plan Assessment: 40-year-old gentleman with a PMH of morbid obesity, right knee injury who presents with complaints of progressive shortness of breath with exertion over the past 1 month, seen in the ED the day prior to admission, was diagnosed with new onset atrial fibrillation, left AMA, experienced recurrence of significant dyspnea with mild exertion. Prior to leaving the hospital yesterday, the patient was provided with a prescription for Eliquis, Cardizem, Proair and a Medrol Dosepak which he had not started taking. Plan Discharge today Atial Fibrillation with RVR, Tachycardia induced cardiomyopathy * We stopped cardizem 30mg Q6 and started on tablet, Cardizem CD 120 milligrams PO OD * We continued tablet eliquis 5mg BID * CHADVasc score -1. * ECHO shows Moderate reduction in global ventricular systolic function. LVEF 35 -40%. * Advised to watch for bleeding Morbid obesity - * Advised to have sleep apnea study as an outpatient. * Advised to follow-up with the PCP for further management of obesity and its complications include impaired glucose tolerance Impaired glucose tolerance * HbA1C of 5.9, needs outpatient follow up. DVT prophylaxis * On Eliquis Code Status * Full code Problem List: 1. Atrial fibrillation with rapid ventricular response 2. Morbid obesity Pain Ratin Pain Location: Not applicable Pain Goal: Remain pain free Pain Plan: Avoid NSAIDs Tomorrow's Labs & Rationales: Does not require as patient is discharged DVT/Prophylaxis: mechanical, pharmacological
[2016-08-07] MEDS ORDERED: DILTIAZEM ER120 M2 PO (11:38)
[2016-08-07] MEDS ORDERED: FUROSEMIDE20 M1 PO (11:38)
[2016-08-07] MEDS ORDERED: ELIQUIS5 M1 PO (12:06)
--- NOTE | 2016-08-07 17:23 | Discharge Summary ---
Visit Information Visit Dates Admission Date: 08/03/16 Discharge Date: 08/07/16 Hospital Course Course Attending Physician: MIGNON FALL,RYAN Cramer Primary Care Physician: OSMIN FALL,EMMANUEL Miller Hospital Course: 40-year-old gentleman with a PMH of morbid obesity, right knee injury who presents with complaints of progressive shortness of breath with exertion over the past 1 month, seen in the ED the day prior to admission, was diagnosed with new onset atrial fibrillation, left AMA, experienced recurrence of significant dyspnea with mild exertion. Prior to leaving the hospital yesterday, the patient was provided with a prescription for Eliquis, Cardizem, Proair and a Medrol Dosepak which he had not started taking. VS on admission: BP 154 100, HR 134, RR 20, SPO2 97% on RA, T 99.4 Pertinent labs: WBC 13.8, H&H 14.1/42.2, platelet count 294K, INR 1.27, sodium 137, potassium 4.6, chloride 97, bicarbonate 29, BUN/Cr 13/0.8, glucose 119 Calcium: 10.3, albumin 4.1 ProBNP: 1713 AST/ALT: 95/140 Magnesium: 1.6 TFTs: TSH 1.710, free T4 1 0.00 UA: Unremarkable Utox: pending CXR: Enlarged cardiac silhouette but unchanged Admitted to telemetry floor Plan Atial Fibrillation with RVR starte on IV heparin and IV cardizem initially which were stopped once patient heart rate is under control. ACS ruled out. Started on cardizem 30mg Q6 which was converted to Diltiazem ER 120mg at discharge. He was started on eliquis 5mg BID although his [id number] -1. He was asked to follow up as outpatient for cardioversion in 2 weeks. ECHO shows Moderate reduction in global ventricular systolic function. LVEF 35-40%. Tachycardia induced cardiomyopathy Patient had EF of 35-40% with global reduction in systolic function. Need to be started on ARB as outpatient (not ACEI as he already had cough which could confound). CXR didnt reveal any acute process. (requested as he had cough and yellowish phlegm production) Impaired glucose tolerance HbA1C of 5.9, needs outpatient follow up. Code Status * Full code Complications: none Allergies: Coded Allergies: Penicillins (UNKNOWN 08/02/16) Significant Procedures: ECHO Mild left ventricular dilatation. Moderate concentric left ventricular hypertrophy. Moderately reduced global left ventricular systolic function. Moderately abnormal left ventricular ejection fraction estimated at 35-40%. Severe right ventricular dilatation. Moderate right atrial dilatation. Severe left atrial dilatation. Moderate mitral regurgitation. Trace tricuspid regurgitation. No evidence of pulmonary hypertension. Mildly dilated ascending aorta. Ryan Crow M.D. Final Date: 05 August 2016 21:14 CXR - on august 06 IMPRESSION: Somewhat limited evaluation. No convincing evidence for an acute cardiopulmonary process. Disposition Summary Disposition Principal Diagnosis: New onset atrial fibrillation with RVR Additional Diagnosis: Tachycardia induced cardiomyopathy Impaired glucose tolerance Discharge Disposition: home or self care Discharge Instructions General Discharge Information Code Status: Full Code Patient's Diet: Heart healthy diet Patient's Activity: Acitivity as tolerated Follow-Up Instructions/Appts: Please follow up with your PCP (emmanuel mason) in a week Please follow up with in a week. Please discuss for future outpatient cardioversion in approximately 3 weeks. Please follow up regarding HbA1C, needs further outpatient evaluation and management for possible diabetes. You may need outpatient study for obstructive sleep apnea. We are restarting furosemide medication. Medications at Discharge Discharge Medications: Continue taking these medications: Multivitamin (Gummi Bear Multivitamin) 1 EACH TAB.CHEW 1 Tablet ORAL DAILY Glucosamine Sulfate 2KCL (Glucosamine) (Unknown Strength) TABLET Unknown Dose ORAL DAILY Albuterol Sulfate (Proair Hfa) 90 MCG HFA.AER.AD 2 Puff Inhale through mouth EVERY 4-6 HOURS NEEDED as needed for WHEEZING Qty = 1 Methylprednisolone. (Medrol) 4 MG TAB.DS.PK 1 Dose Pack ORAL As Directed Qty = 1 Instructions: 6 on day 1 then reduce by one tablet daily until gone Apixaban (Eliquis) 5 MG TABLET 1 Tablet ORAL TWICE DAILY Qty = 90 Comments: Last Taken: 08/07/16 Time: 814 This prescription has been renewed Start taking the following new medications: Diltiazem Cd (Diltiazem ER) 120 MG CAP.ER.DEG 120 Milligram ORAL DAILY Qty = 90 No Refills Comments: Last Taken: 08/07/16 Time: 1200 Furosemide (Furosemide) 20 MG TABLET 20 Milligram ORAL DAILY Qty = 30 No Refills Comments: Last Taken: 08/07/16 Time: 15 Copies To: OSMIN FALL,EMMANUEL Miller; RYAN CROW MD Attending MD Review Statement Documenting Attending: RYAN CROW MD.
== END 2016-08-07 12:46 | DRG 201 ==
LOC: ENRESERVTM → ENRESERVDT → ERH 14:28 → ERHI 15:15 → 1NO 15:15 → ENPENDDIS 15:15 → DELPENDDIS 15:15 → 1NO 17:33
PROVIDERS: Emergency Medicine; Internal Medicine; ADMIT Internal Medicine Interventional Cardiology
DX: I48.91 Unspecified atrial fibrillation (principal); I50.20 Unspecified systolic (congestive) heart failure; E66.01 Morbid (severe) obesity due to excess calories; I42.8 Other cardiomyopathies; Z68.41 Body mass index [BMI] 40.0-44.9, adult; E83.42 Hypomagnesemia
CPT/HCPCS: 1NSP; 86618; 36415; 80307; 81003; 82436; 87086; 87449; 87450; 93005; 93010; 93306; 96374; 96375; 96376; 99291; J1644; J1940

== ENCOUNTER 2017-06-28 08:35 | Emergency (ER) | payer OTHER ==
[~2017-06-28] VITALS: Ht 180.3 cm; Wt 173.3 kg
[~2017-06-28 08:35] MED LIST changes: +DILTIAZEM ER120 M2 PO; +FUROSEMIDE20 M1 PO
--- NOTE | 2017-06-28 08:50 | ED GI/GU/ABDOMINAL COMPLAINT ---
See Addendum History of Present Illness General Chief Complaint: General Adult Stated Complaint: LT GROIN PAIN S/P SURGERY Source: patient, family, old records Exam Limitations: no limitations Vital Signs & Intake/Output Vital Signs & Intake/Output Vital Signs Date Time Temp Pulse Resp B/P B/P Pulse O2 O2 Flow FiO2 Mean Ox Delivery Rate 06/28 1045 98.5 80 20 129/60 98 Room Air 06/28 0837 96.5 92 18 119/81 99 Room Air Room Air Allergies Coded Allergies: Penicillins (UNKNOWN 08/02/16) Reconcile Medications Apixaban (Eliquis) 5 MG TABLET 1 TAB PO BID afib Dicyclomine HCl 20 MG TABLET 1 TAB PO TID GI (Reported) Diltiazem HCl (Cardizem Cd) 240 MG CAP.ER.24H 1 CAP PO DAILY HEART (Reported) Furosemide 40 MG TABLET 1 TAB PO DAILY AFIB (Reported) Glucosamine Sulfate 2KCL (Glucosamine) (Unknown Strength) TABLET (Unknown Dose ) PO DAILY SUPPLEMENT (Reported) Metoprolol Tartrate 25 MG TABLET 1 TAB PO BID HEART (Reported) Multivitamin (Gummi Bear Multivitamin) 1 EACH TAB.CHEW 1 TAB PO DAILY SUPPLEMENT (Reported) Omeprazole 20 MG CAPSULE.DR 1 CAP PO DAILY GI (Reported) Oxycodone HCl/Acetaminophen (Percocet 5-325 MG Tablet) 5 MG-325 MG TABLET 1 TAB PO BID BREAKTHROUGH PAIN Spironolactone 25 MG TABLET 1 TAB PO DAILY HEART (Reported) Sucralfate (Carafate) 1 GRAM/10 ML ORAL.SUSP 10 ML PO BID GI (Reported) 1 hour before food Valsartan (Diovan) 80 MG TABLET 1 TAB PO DAILY HEART (Reported) Triage Note: PT TO ED WITH C/O LEFT GROIN PAIN S/P "CATHETER ABLATION LAST MONDAY, ALSO C/O BRUISING TO THE AREA". DENIES N/V/D OR FEVER. Triage Nurses Notes Reviewed? yes Onset: Abrupt Duration: day(s): (5) Timing: recent history Location: LEFT GROIN Radiation: no radiation Activities at Onset: CARDIAC CATH LAST MONDAY HPI: This is a 41-year-old male history of A. fib status post cardiac ablation last Monday by Dr. Gu in [facility] who presents with worsening left groin pain since Monday. Patient had an outpatient ultrasound done yesterday but was unaware of the results. Patient states that he woke up this morning with more severe pain. No fever or chills. Appetite has been normal. Output has been normal both urine and stool. Pain is much worse with movement. He took 600 mg of Advil as morning without any relief. Patient is on Eliquis twice a day last dose was this morning. He does have some bruising bilaterally that developed after bilateral femoral axis last week. His right leg is not hurting at all but his left leg is significantly tender. No numbness or tingling in the extremity. Past History Travel History Traveled to [place] past 21 day No Medical History Any Pertinent Medical History? see below for history Neurological: NONE EENT: NONE Cardiovascular: AFIB, CATHETER ABLATION 2017 Respiratory: NONE Gastrointestinal: NONE Hepatic: NONE Renal: NONE Musculoskeletal: right knee injury Psychiatric: NONE Endocrine: obesity Blood Disorders: NONE Cancer(s): NONE IMMIGRATION ATTORNEY/Reproductive: NONE History of MRSA: No History of VRE: No History of CDIFF: No Surgical History Surgical History: TONSILECTOMY Psychosocial History Who do you live with Patient/Self Services at Home None What is your primary language Maltese Tobacco Use: Never used ETOH Use: occasional use Illicit Drug Use: denies illicit drug use Family History Hx Contributory? No Review of Systems Review of Systems Constitutional: Denies: chills, fever. EENTM: Reports: no symptoms. Respiratory: Denies: cough, short of breath. Cardiovascular: Denies: chest pain, palpitations. GI: Reports: no symptoms. Genitourinary: Reports: no symptoms. Musculoskeletal: Reports: see HPI (LEG PAIN). Skin: Reports: no symptoms. Neurological/Psychological: Reports: no symptoms. Hematologic/Endocrine: Reports: bruising. Denies: bleeding. Immunologic/Allergic: Reports: no symptoms. All Other Systems: Reviewed and Negative Physical Exam Physical Exam General Appearance: well developed/nourished, alert, awake, anxious, mild distress, moderate distress, obese Head: atraumatic, normal appearance Eyes: Bilateral: normal appearance, PERRL, EOMI. Ears, Nose, Throat, Mouth: hearing grossly normal, moist mucous membrane Neck: normal inspection, supple, full range of motion Respiratory: normal breath sounds, chest non-tender, no respiratory distress Cardiovascular: regular rate/rhythm, normal peripheral pulses Peripheral Pulses: 2+ dorsalis pedis (R), 2+ dorsalis pedis (L) Gastrointestinal: normal bowel sounds, soft, LEFT GROIN TENDER TO TOUCH, MILD BRUISING, PALPABLE HEMATOMA Male Genitals: normal genitalia Back: normal inspection, normal range of motion Extremities: normal range of motion Neurologic/Psych: no motor/sensory deficits, awake, alert, oriented x 3, normal mood/affect Core Measures ACS in differential dx? No Sepsis Present: No Sepsis Focused Exam Completed? No Progress Differential Diagnosis: HEMATOMA, ANEURYSM, INGUINAL HERNIA, POST PROCEDURE PAIN , MUSCULOSKELETAL STRAIN Plan of Care: Orders Procedure Date/time Status PARTIAL THROMBOPLASTIN TIME 06/28 853 Complete PROTHROMBIN TIME 06/28 853 Complete C-REACTIVE PROTEIN 06/28 853 Complete COMPREHENSIVE METABOLIC PANEL 06/28 853 Complete CBC WITHOUT DIFFERENTIAL 06/28 853 Complete TYPE & SCREEN (NOT X-MATCH) 06/28 853 Complete Laboratory Tests 06/28/17 0903: Anion Gap 13, Estimated GFR > 60, BUN/Creatinine Ratio 18.0, Glucose 116 H, Calcium 9.7, Total Bilirubin 0.6, AST 48, ALT 61, Alkaline Phosphatase 80, C- Reactive Prot, Quant 3.0 H, Total Protein 7.2, Albumin 3.8, Globulin 3.4, Albumin/Globulin Ratio 1.1, PT 14.7 H, INR 1.40 H, APTT 35, CBC w Diff NO MAN DIFF REQ, RBC 3.85 L, MCV 92.8, MCH 31.4 H, MCHC 33.8, RDW 13.7, MPV 7.2 L, Gran % 75.7 H, Lymphocytes % 16.4 L, Monocytes % 4.4, Eosinophils % 3.4, Basophils % 0.1, Absolute Granulocytes 6.8 H, Absolute Lymphocytes 1.5, Absolute Monocytes 0.4, Absolute Eosinophils 0.3, Absolute Basophils 0 SLIGHT IMPROVEMENT WITH MORPHINE. DILAUDID [address] PENDING 11:21 AM RESUTLS D/W DR VENEGAS. WILL D/C WITH INCREASED PAIN CONTROL, WARM SOAKS. Diagnostic Imaging: Viewed by Me: CT Scan. Discussed w/RAD: CT Scan. Radiology Impression: PATIENT: HARSHAD MUNOZ PRESENT AGE: 41 PATIENT ACCOUNT NO: [id number] : 74 LOCATION: [facility] ORDERING PHYSICIAN: Kimber Monson MD SERVICE DATE: 06/28/17 EXAM TYPE: CAT - CT ABD & PELVIS W IV CONTRAST EXAMINATION: CT ABDOMEN AND PELVIS WITH CONTRAST CLINICAL INFORMATION: Severe left groin pain after cardiac ablation. Question hernia. Question hematoma. COMPARISON: Ultrasound duplex exam 2017. TECHNIQUE: Multidetector volumetric imaging was performed of the abdomen and pelvis following IV administration of 94 mL of Optiray 320 intravenous contrast. Sagittal and coronal reformatted images were obtained on the technologist's workstation. DLP: 2313 mGy-cm FINDINGS: LUNG BASES: Mild bibasilar atelectasis. LIVER, GALLBLADDER, AND BILIARY TREE: Liver is diffusely hypoattenuating consistent with diffuse hepatic steatosis. No focal liver lesion seen. The gallbladder is unremarkable with no evidence of radiopaque gallstones, gallbladder wall thickening, or obvious pericholecystic inflammatory changes. PANCREAS: Unremarkable. SPLEEN: Unremarkable. ADRENAL GLANDS: Unremarkable. KIDNEYS AND URETERS: The kidneys are normal in size, shape, and attenuation. No hydronephrosis, hydroureter, or calculi seen. No perinephric stranding. BLADDER: Unremarkable. GASTROINTESTINAL TRACT: The small and large bowel are unremarkable. The appendix is unremarkable. ABDOMINAL WALL: No significant hernia is appreciated. LYMPH NODES: Normal. VASCULAR: Normal caliber abdominal aorta. The IVC enhances normally. PELVIC VISCERA: The prostate and seminal vesicles are unremarkable. OSSEOUS STRUCTURES: There is degenerative disc disease with vacuum disc phenomenon at L3-L4. There is abnormal heterogeneous hyperdensity consistent with a hematoma measuring 8.1 x 4.1 cm transaxially by 9.4 cm craniocaudal consistent with an intramuscular hematoma within the left pectineus. IMPRESSION: 8.1 x 4.1 x 9.4 cm intramuscular hematoma within the left pectoral 26 muscle belly. DICTATED BY: Amilcar Orellana MD DATE/TIME DICTATED:1035 [employer]ERAL HOME MANAGER:JENIFFER DATE/TIME TRANSCRIBED:06/28/171035 CONFIDENTIAL, DO NOT COPY WITHOUT APPROPRIATE AUTHORIZATION. <Electronically signed in Other Vendor System> SIGNED BY: Amilcar Orellana MD 06/28/17 1047 Initial ED EKG: none Departure Departure Time of Disposition: 1121 Disposition: HOME OR SELF CARE Condition: Stable Clinical Impression Primary Impression: Left groin pain Referrals: Dave FALL,Alban Fenton MD,Nika Mendez (PCP/Family) Additional Instructions: TAKE THE PERCOCET DIRECTED AND USE OVER THE COUNTER STOOL SOFTENERS. WARM SOAKS DISCUSSED AND NO HEAVY LIFTING. FOLLOW UP WITH DR VENEGAS PREVIOUSLY DIRECTED RETURN NEEDED Departure Forms: Customer Survey General Discharge Information Prescriptions: Current Visit Scripts Oxycodone HCl/Acetaminophen (Percocet 5-325 MG Tablet) 1 TAB PO BID #15 TAB
[2017-06-28 09:09] LABS: ABSOLUTE BASOPHIL COUNT 0 /CUMM (0.0-0.2); ABSOLUTE EOSINOPHIL COUNT 0.3 /CUMM (0.0-0.7); ABSOLUTE GRANULOCYTE CT 6.8 /CUMM (1.4-6.5); ABSOLUTE LYMPH COUNT 1.5 /CUMM (1.2-3.4); ABSOLUTE MONOCYTE COUNT 0.4 /CUMM (0.10-0.60); BASOPHIL % 0.1 % (0.0-2.0); EOSINOPHIL % 3.4 % (0-5); GRANULOCYTE % 75.7 % (42.2-75.2); HEMATOCRIT 35.7 % (42-52); MEAN CORPUSCULAR HGB 31.4 PG (27.0-31.0); MEAN CORPUSCULAR HGB CONC 33.8 G/DL (33.0-37.0); MEAN CORPUSCULAR VOLUME 92.8 FL (80.0-94.0); MEAN PLATELET VOLUME 7.2 FL (7.4-10.4); PLATELET COUNT 325 /CUMM (130-400); RBC DISTRIBUTION WIDTH 13.7 % (11.5-14.5); RED BLOOD CELL CT 3.85 /CUMM (4.70-6.10); WHITE BLOOD CELL COUNT 8.9 /CUMM (4.8-10.8)
[2017-06-28] MEDS ORDERED: DICYCLOMINE HCL20 M1 PO (09:41)
[2017-06-28] MEDS ORDERED: CARDIZEM CD240 M1 PO (09:42)
[2017-06-28] MEDS ORDERED: FUROSEMIDE40 M1 PO (09:42)
[2017-06-28] MEDS ORDERED: OMEPRAZOLE20 M2 PO (09:43)
[2017-06-28] MEDS ORDERED: SPIRONOLACTONE25 M1 PO (09:43)
[2017-06-28] MEDS ORDERED: METOPROLOL TART25 M1 PO (09:43)
[2017-06-28] MEDS ORDERED: CARAFATE1 GM/10 M1 PO (09:44)
[2017-06-28] MEDS ORDERED: DIOVAN80 M1 PO (09:44)
[2017-06-28 09:45] LABS: PT 14.7 SEC (9.4-12.5); PTT 35 SEC (25-37)
[2017-06-28 10:45] VITALS: BP 129/60
--- NOTE | 2017-06-28 10:47 | CT SCAN REPORT ---
EXAMINATION: CT ABDOMEN AND PELVIS WITH CONTRAST CLINICAL INFORMATION: Severe left groin pain after cardiac ablation. Question hernia. Question hematoma. COMPARISON: Ultrasound duplex exam 06/27/2017. TECHNIQUE: Multidetector volumetric imaging was performed of the abdomen and pelvis following IV administration of 94 mL of Optiray 320 intravenous contrast. Sagittal and coronal reformatted images were obtained on the technologist's workstation. DLP: 2313 mGy-cm FINDINGS: LUNG BASES: Mild bibasilar atelectasis. LIVER, GALLBLADDER, AND BILIARY TREE: Liver is diffusely hypoattenuating consistent with diffuse hepatic steatosis. No focal liver lesion seen. The gallbladder is unremarkable with no evidence of radiopaque gallstones, gallbladder wall thickening, or obvious pericholecystic inflammatory changes. PANCREAS: Unremarkable. SPLEEN: Unremarkable. ADRENAL GLANDS: Unremarkable. KIDNEYS AND URETERS: The kidneys are normal in size, shape, and attenuation. No hydronephrosis, hydroureter, or calculi seen. No perinephric stranding. BLADDER: Unremarkable. GASTROINTESTINAL TRACT: The small and large bowel are unremarkable. The appendix is unremarkable. ABDOMINAL WALL: No significant hernia is appreciated. LYMPH NODES: Normal. VASCULAR: Normal caliber abdominal aorta. The IVC enhances normally. PELVIC VISCERA: The prostate and seminal vesicles are unremarkable. OSSEOUS STRUCTURES: There is degenerative disc disease with vacuum disc phenomenon at L3-L4. There is abnormal heterogeneous hyperdensity consistent with a hematoma measuring 8.1 x 4.1 cm transaxially by 9.4 cm craniocaudal consistent with an intramuscular hematoma within the left pectineus. IMPRESSION: 8.1 x 4.1 x 9.4 cm intramuscular hematoma within the left pectoral 26 muscle belly.
[2017-06-28] MEDS ORDERED: PERCOCET 5-3251 EACH PO (11:23)
== END 2017-06-28 11:40 ==
LOC: ERH 08:35
PROVIDERS: Emergency Medicine
DX: R10.32 Left lower quadrant pain (principal)
CPT/HCPCS: 74177; 96374; 96375; Q9965